=== PATIENT | female | born 1995 | race Two or more races ===

== ENCOUNTER 2023-12-10 14:27 | Outpatient (AMB) | payer OTHER, SELFPAY ==
--- NOTE | 2023-12-10 14:47 | MHC.PC.OV ---
Vital Signs 12/10/23 14:49 Height 5 ft 3 in Weight 332 lb 6 oz BMI 58.9 BP 118/70 Blood Pressure Location Lt brachial Position Sitting Pulse 98 Pulse Source Pulse Oximeter Pulse Oximetry (%) 96 Oxygen Delivery Method Room Air Intake Visit Reasons: Establish care Intake Note: Patient is a new patient here to establish care for PCOS. Transferring care from [facility]. Medical records have not been requested and have not received. 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: Not Required per policy Accompanied by: Self / Same As Patient Allergies metformin Allergy (Intermediate, Verified 12/11/23 06:27) Stomach Upset Medication List - Last Reconciled 12/11/23 by Avel Eisenberg MD No Known Home Meds Tobacco use date assessed: 12/10/23 Dental Screening Dental Screen Date: 12/10/23 Did you have a dental visit in the last 12 months?: Yes Did you have a dental problem in the last 6 months where you did not have access to dental care?: No Was dental information given to patient?: Patient has dentist HPI Establish care HPI Details 28-year-old female presents to the office requesting to establish her care here. Patient is a healthy female with PCOS. 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 At baseline state of health. REPLACED BY [facility] Surgical History No pertinent past surgical history Social History Housing: Apartment Alcohol intake: never Patient Tobacco Use Status: Never used Tobacco e-Cigarette/Vaping Use: Never Used Second Hand Smoke Exposure: No service: No Current occupational status: employed Current occupation: OA Cognitive needs: No Hearing needs: No Vision needs: No Questionnaire PHQ-9 Over the last 2 weeks, how often have you been bothered by any of the following problems? 1. Little interest or pleasure in doing things: not at all 2. Feeling down, depressed, or hopeless: not at all 3. Trouble falling or staying asleep, or sleeping too much: not at all 4. Feeling tired or having little energy: not at all 5. Poor appetite or overeating: not at all 6. Feeling bad about yourself - or that you are a failure or have let yourself or your family down: not at all 7. Trouble concentrating on things, such as reading the newspaper or watching television: not at all 8. Moving or speaking so slowly that other people could have noticed. Or the opposite - being so fidgety or restless that you have been moving around a lot more than usual: not at all 9. Thoughts that you would be better off or of hurting yourself in some way: not at all Total score: 0 Depression Screening Interpretation: Negative Depression Screening Done: Yes Source: Developed by Drs. Shankar Srinivasan, Celia Rodrigues, Zac Mata and colleagues, with an educational lurdes from [employer] Thrive Questionnaire Date Thrive assessed: 12/10/23 I am a: Patient What is your living situation today?: I have a steady place to live Within the past 12 months, did the food you bought not last and you didn't have the money to get more?: Never true Within the past 12 months, did you worry whether your food would run out before you got money to buy more?: Never true Do you have trouble paying for medicines?: No Do you have trouble getting transportation to medical appointments?: No Do you have trouble paying your heating and electricity bill?: No Do you have trouble taking care of your child, family member or friend?: No Do you have trouble with day-to-day activities such as bathing, preparing meals, shopping, managing finances, etc.?: No Are you currently unemployed and looking for a job?: No Are you interested in more education?: No Currently or been in a relationship where the following occur: no concerns reported AUDIT C Alcohol Use Questionnaire (AUDIT-C) 1. How often do you have a drink containing alcohol?: Never Total Score: 0 LANDON-7 AMB Questionnaire LANDON-7 Date LANDON - 7 assessed: 12/10/23 Feeling nervous, anxious, or on edge: 0 = Not at all Not being able to stop or control worryin = Not at all Worrying too much about different things: 0 = Not at all Trouble relaxin = Not at all Being so restless that it is hard to sit still: 0 = Not at all Becoming easily annoyed or irritable: 0 = Not at all Feeling afraid as if something awful might happen: 0 = Not at all Total LANDON-7 score (0-4 normal; 5-9 mild; 10-14 moderate; 15-21 severe): 0 Source: Developed by Drs. hSankar Srinivasan, Celia Rodrigues, Zac Mata and colleagues, with an educational lurdes from [employer] Physical exam (Primary Care) Vital Signs: Last Vital Signs Pulse 98 12/10/23 14:49 BP 118/70 12/10/23 14:49 Pulse Ox 96 12/10/23 14:49 Oxygen Delivery Method Room Air 12/10/23 14:49 BMI result Body Mass Index 58.9 Tobacco/Smoking Status: Tobacco use Status Tobacco use date assessed 12/10/23 12/10/23 14:58 Patient Tobacco Use Status Never used Tobacco 12/10/23 14:58 e-Cigarette/Vaping Use Never Used 12/10/23 14:58 PHQ-9: PHQ-9 Score PHQ-9: Total score 0 12/10/23 14:58 Depression Screening Interpretation: Negative Thrive Assessment: Date of Thrive Assessment Date Thrive assessed 12/10/23 12/10/23 14:58 Currently or been in a relationship where the following occur: no concerns reported Const General: cooperative and healthy appearing Nutritional Appearance: well nourished Orientation/consciousness: patient oriented x3 Limitations: no limitations HENMT Head: Yes normal to inspection Eyes General: appearance normal, both eyes and all related structures Neck Neck: Yes normal visual inspection Chest Chest palpation & inspection: normal palpation of entire chest wall Resp Effort & Inspection: normal respiratory effort Neuro General: patient oriented x3 Assessment and Plan Assessment & Plan (1) PCOS (polycystic ovarian syndrome): Code(s): E28.2 - Polycystic ovarian syndrome Plan: Blood work has been ordered. Will call patient with results. Coding Level of Care Code New Pt Level 3 (93030) Diagnoses PCOS (polycystic ovarian syndrome) E28.2
[2023-12-10 14:49] VITALS: BP 118/70; PULSE 98; O2SAT 96; BMI 58.9
== END 2023-12-10 16:08 | disposition home or self-care (01) ==
PROVIDERS: PCP Internal Medicine; Visit Provider Internal Medicine
DX: E28.2 Polycystic ovarian syndrome (principal)
CPT/HCPCS: 99203

== ENCOUNTER 2023-12-12 08:14 | Outpatient (REF) | payer OTHER, SELFPAY ==
[2023-12-12 10:47] LABS: Hematocrit 44.6 % (37.0-47.0); Mean Corpuscular HGB Conc 33.6 g/dl (31.0-35.0); Mean Corpuscular Hemoglobin 29.6 pg (27.0-33.0); Mean Corpuscular Volume 88.1 fL (80.0-98.0); Platelet Count 348 X10*3/uL (160-400); Red Blood Count 5.06 X10*6/uL (4.20-5.50); Red Cell Distribution Width 13.9 % (11.0-16.0); White Blood Count 9.5 X10*3/uL (4.8-10.8)
[2023-12-12 11:12] LABS: Alanine Aminotransferase 64 U/L (0-31); Albumin Level 4.1 g/dL (3.5-5.0); Alkaline Phosphatase 63 U/L (39-117); Anion Gap 9 (12-20); Appearance Urine Clear; Aspartate Amino Transferase 29 U/L (5-31); Bilirubin Direct 0.2 mg/dL (0.0-0.5); Bilirubin Total 0.5 mg/dL (0.0-1.0); Blood Urea Nitrogen 14 mg/dL (9-16); Calcium 9.3 mg/dL (8.4-10.2); Carbon Dioxide 27 mmol/L (22-29); Chloride 105 mmol/L (96-108); Cholesterol 200 mg/dL (<200); Color Urine Yellow; Estimated Glomerular Filt Rate > 60; Glucose Random 93 mg/dL (60-115); Glucose Urine UA Negative (Negative); HDL Cholesterol 33 mg/dL (>40); LDL Cholesterol Calculated 140 mg/dL (<100); Leukocyte Esterase Urine Negative (Negative); Nitrite Urine Negative (Negative); PH 5.5 (5.0-9.0); Potassium 4.3 mmol/L (3.3-5.1); Sodium 137 mmol/L (135-145); Specific Gravity - Urine 1.025 (1.005-1.025); Total Protein 7.7 g/dL (6.5-8.0); Triglycerides 137 mg/dL (<150); Urine Blood Negative (Negative); Urine Ketones Negative (Negative); Urine Protein Negative (Neg-Trace)
[2023-12-12 11:36] LABS: Insulin 27 uU/mL (2-29); Thyroid Stimulating Hormone 1.29 uIU/mL (0.32-4.0)
== END 2023-12-12 08:15 | disposition home or self-care (01) ==
LOC: HO.10HDL 08:14
PROVIDERS: Visit Provider Internal Medicine
DX: E28.2 Polycystic ovarian syndrome (principal)
CPT/HCPCS: 36415; 80048; 80061; 80076; 81003; 83525; 84443; 85027

== ENCOUNTER 2024-01-16 10:34 | Outpatient (REF) | payer OTHER, SELFPAY ==
[2024-01-17 04:17] LABS: HBc Num1 0.08 S/CO (0.00-0.79); HBsAGNum1 0.32 S/CO (0.00-0.99); Hepatitis B Core Antibody Nonreactive (Nonreactive); Hepatitis B Surface Antigen Negative (Negative); ~HepC Num1 0.08 S/CO (0.00-0.79); ~Hepatitis B Surface Antibody NONREACTIVE (Nonreactive); ~Hepatitis C Antibody Nonreactive (Nonreactive)
[2024-01-18 20:48] LABS: TS Negative Control Passed; TS Panel A 0; TS Panel B 0; TS Positive Control Passed; TSpotTB Negative (Negative)
== END 2024-01-16 10:35 | disposition home or self-care (01) ==
LOC: HO.10HDL 10:34
PROVIDERS: Visit Provider Physician Assistant
DX: Z11.1 Encounter for screening for respiratory tuberculosis (principal); L73.2 Hidradenitis suppurativa
CPT/HCPCS: 36415; 86481; 86704; 86706; 86803; 87340

== ENCOUNTER 2025-01-07 13:12 | Outpatient (REF) | payer OTHER, SELFPAY ==
[2025-01-07 16:46] LABS: Influenza A PCR POSITIVE (Negative); Influenza B PCR NEGATIVE (Negative); Resp Syncy Virus RNA Qual PCR NEGATIVE (Negative); SARS COV2 PCR INHOUSE NEGATIVE (Negative)
== END 2025-01-07 13:13 | disposition home or self-care (01) ==
LOC: HO.LAB 13:12
PROVIDERS: PCP Internal Medicine; Visit Provider Physician Assistant
DX: R09.89 Other specified symptoms and signs involving the circulatory and respiratory systems (principal); B34.9 Viral infection, unspecified; R50.9 Fever, unspecified
CPT/HCPCS: 0241U; 87880

== ENCOUNTER 2025-02-25 15:51 | Outpatient (AMB) | payer OTHER, SELFPAY ==
--- NOTE | 2025-02-25 15:54 | A.OFFPC_ITS ---
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 Accompanied by: Self / Same As Patient Allergies metformin Allergy (Intermediate, Verified 02/25/25 16:05) Stomach Upset Medication List - Last Reconciled 02/25/25 by BHARTI Amaya No Known Home Meds Tobacco use date assessed: 02/25/25 Dental Screening Dental Screen Date: 02/25/25 Did you have a dental visit in the last 12 months?: Yes Did you have a dental problem in the last 6 months where you did not have access to dental care?: No Was dental information given to patient?: Patient has dentist HPI high blood pressure and heart rate HPI Details The patient is a 29 year old female with hx of pcos and goiter. Reports that she went on [facility] in [place] on Saturday and they noticed that her blood pressure was 140/90, HR 112-116. The patient reports that she never had ultrasound of her neck before and she would like to if this is the dr pendleton force for pressure. Patient reports that she never had high blood pressure before. Blood pressure is elevated at 152/100 with a heart rate of 102. Recheck blood pressure is 162/98 left forearm. On exam the patient is noted to have a goiter. Patient reports that she is having a hard time swallowing her foods. And sometimes she gets short of breath sitting. [facility] Medical History (Updated 02/25/25 @ 16:44 by BHARTI Amaya) PCOS (polycystic ovarian syndrome) Goiter Surgical History No pertinent past surgical history Social History Housing: Apartment Alcohol intake: never Patient Tobacco Use Status: Never used Tobacco e-Cigarette/Vaping Use: Never Used Second Hand Smoke Exposure: No service: No Current occupational status: employed Current occupation: OA Cognitive needs: No Hearing needs: No Vision needs: No Questionnaire PHQ-9 Over the last 2 weeks, how often have you been bothered by any of the following problems? 1. Little interest or pleasure in doing things: not at all 2. Feeling down, depressed, or hopeless: not at all 3. Trouble falling or staying asleep, or sleeping too much: not at all 4. Feeling tired or having little energy: not at all 5. Poor appetite or overeating: not at all 6. Feeling bad about yourself - or that you are a failure or have let yourself or your family down: not at all 7. Trouble concentrating on things, such as reading the newspaper or watching television: not at all 8. Moving or speaking so slowly that other people could have noticed. Or the opposite - being so fidgety or restless that you have been moving around a lot more than usual: not at all 9. Thoughts that you would be better off or of hurting yourself in some way: not at all Total score: 0 Depression Screening Interpretation: Negative Depression Screening Done: Yes 82424 - PHQ-9 Billing: Yes Source: Developed by Drs. Shankar Srinivasan, Celia Rodrigues, Zac Mata and colleagues, with an educational lurdes from [employer] Thrive Questionnaire Date Thrive assessed: 12/10/23 I am a: Patient What is your living situation today?: I have a steady place to live Within the past 12 months, did the food you bought not last and you didn't have the money to get more?: Never true Within the past 12 months, did you worry whether your food would run out before you got money to buy more?: Never true Do you have trouble paying for medicines?: No Do you have trouble getting transportation to medical appointments?: No Do you have trouble paying your heating and electricity bill?: No Do you have trouble taking care of your child, family member or friend?: No Do you have trouble with day-to-day activities such as bathing, preparing meals, shopping, managing finances, etc.?: No Are you currently unemployed and looking for a job?: No Are you interested in more education?: No Please select the resources that you would like help with: None Currently or been in a relationship where the following occur: No concerns rep orted THRIVE Score: 0 AUDIT C Alcohol Use Questionnaire (AUDIT-C) 1. How often do you have a drink containing alcohol?: Monthly or less 2. How many drinks containing alcohol do you have on a typical day when you are drinking?: 1 or 2 3. How often do you have six or more drinks on one occasion?: Never Total Score: 1 LANDON-7 AMB Questionnaire LANDON-7 Date LANDON - 7 assessed: 02/25/25 Feeling nervous, anxious, or on edge: 0 = Not at all Not being able to stop or control worryin = Not at all Worrying too much about different things: 0 = Not at all Trouble relaxin = Not at all Being so restless that it is hard to sit still: 0 = Not at all Becoming easily annoyed or irritable: 0 = Not at all Feeling afraid as if something awful might happen: 0 = Not at all Total LANDON-7 score (0-4 normal; 5-9 mild; 10-14 moderate; 15-21 severe): 0 Source: Developed by Drs. Shankar Srinivasan, Celia Rodrigues, Zac Maat and colleagues, with an educational lurdes from [employer] LANDON-7 Assessment Billing LANDON-7 Assessment Tool: LANDON-7 Assessment 92727 Review of Systems Const Denies headache(s) and Reports snoring (was dx with JACI) Eyes Denies loss of vision ENT Reports dysphagia (has to chew food extensively before swallowing), Denies vertigo, Denies dizziness, Denies headache(s) and Denies sore throat Card Denies chest pain, Denies leg edema, Denies lightheadedness and Reports dyspnea (intermittent evening while sitting down) Resp Denies cough, Denies hemoptysis, Reports dyspnea (intermittent evening while sitting down), Reports snoring (was dx with JACI) and Denies wheezing GI Denies abdominal pain, Denies melena, Denies constipation, Reports dysphagia (has to chew food extensively before swallowing), Denies diarrhea and Denies vomiting Denies urinary frequency, Denies dysuria and Denies urinary urgency Musc Denies arthralgias, Denies joint swelling, Denies numbness and Denies tingling Neuro Denies Abnormal speech present, Denies behavioral changes, Denies vertigo, Denies dizziness, Denies headache(s), Denies loss of vision, Denies memory loss, Denies numbness and Denies tingling Psych Denies anxiety, Denies behavioral changes, Denies depression, Denies memory loss and Denies panic attacks Endo Denies cold intolerance, Denies heat intolerance and Denies polyuria Darrel/Lymph Denies easy bleeding and Denies easy bruising Aller/Immun Denies wheezing Physical exam (Primary Care) Vital Signs: Last Vital Signs Temp 98.7 F 02/25/25 15:55 Pulse 106 H 02/25/25 15:55 Resp 22 H 02/25/25 15:55 BP 152/100 H 02/25/25 15:55 Pulse Ox 96 02/25/25 15:55 Oxygen Delivery Method Room Air 02/25/25 15:55 BMI result Body Mass Index 60.8 Tobacco/Smoking Status: Tobacco use Status Tobacco use date assessed 02/25/25 02/25/25 16:03 Patient Tobacco Use Status Never used Tobacco 02/25/25 16:03 e-Cigarette/Vaping Use Never Used 02/25/25 16:03 PHQ-9: PHQ-9 Score PHQ-9: Total score 0 02/25/25 16:20 Depression Screening Interpretation: Negative Thrive Assessment: Date of Thrive Assessment Date Thrive assessed 12/10/23 02/25/25 16:03 Currently or been in a relationship where the following occur: No concerns reported Const General: healthy appearing, no acute distress, alert and awake Nutritional Appearance: well nourished Orientation/consciousness: oriented to person, oriented to place and oriented to time HENMT Ears: TM's normal bilaterally General nose exam: Normal nasal mucous membranes and turbinates present Eyes Conjunctivae: conjunctivae normal Sclerae: sclerae normal Pupils: Equal, round and reactive pupils present Neck Neck: Yes no lymphadenopathy and Yes no JVD Thyroid: lateral enlargement Carotids: no bruits Resp Effort & Inspection: normal respiratory effort and tachypneic (slightly-R 22) Auscultation: no crackles, no rales, no rhonchi and no wheezes Cardio Rate: tachycardic Rhythm: regular rhythm Heart sounds: no murmurs and normal S1 and S2 GI Palpation (GI): Soft to palpation, nontender, no hepatomegaly and no splenomegaly Auscultation: normal bowel sounds Skin General skin exam: no rashes or lesions noted and dry skin Neuro General: oriented to person, oriented to place and oriented to time Cranial nerves: Yes Equal, round and reactive pupils present Speech: No Abnormal speech present Gait exam (Neuro): Normal gait present Motor exam (neuro): no tremor noted Extrem Right upper extremity: full ROM Left upper extremity: full ROM Right lower extremity: full ROM; no edema Left lower extremity: full ROM; no edema Psych Mental Status: mental status grossly normal Speech and movement: Normal speech and movement present Affect: normal affect Attitude: cooperative Thought process: Normal thought process present Office Procedures EKG 36980-[id number], Complete Coding Level of Care Code Est Pt Level 4 (53969) Diagnoses Goiter E04.9 PCOS (polycystic ovarian syndrome) E28.2 SOB (shortness of breath) R06.02 JACI (obstructive sleep apnea) G47.33 Prediabetes R73.03 Elevated blood pressure reading without diagnosis of hypertension R03.0 CPT Codes EKG - CPT: 13648-[id number], Complete ([id number]) Additional Codes LANDON-7 Assessment Billing - LANDON-7 Assessment Tool: LANDON-7 Assessment 36604 ([id number]) PHQ-9 - 48939 - PHQ-9 Billing: Yes ([id number]) Time Spent (min) 43 Assessment & Plan Assessment & Plan (1) Goiter: Code(s): E04.9 - Nontoxic goiter, unspecified Category: Medical Plan: We will order an urgent ultrasound and thyroid function tests (2) PCOS (polycystic ovarian syndrome): Code(s): E28.2 - Polycystic ovarian syndrome Category: Medical Plan: History of PCOS and has been seen Endocrine. (3) SOB (shortness of breath): Code(s): R06.02 - Shortness of breath Category: Medical Plan: Shortness of breath intermittent while sitting. Lungs clear, EKG done in office shows sinus tachycardia and no acute findings The patient also reports that she has sleep apnea that was diagnosed in 2022 (4) JACI (obstructive sleep apnea): Code(s): G47.33 - Obstructive sleep apnea (adult) (pediatric) Category: Medical Plan: Reports she has been using a sleep cpap at the [facility] of last year. Sleep study 2022 The patient reports that she has not used her CPAP in a while; it is very uncomfortable for her. Reports that she use to be seen at [facility] but would like to go somewhere else instead-will refer her. 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 She has not have high blood pressure in the past and was concerns if this was being cause by her thyroid. BP elevated in office, denies chest pain. EKG done showed sinus tach without any acute findings. Hydrochlorothiazide 12.5 mg daily, return in 3 weeks to get blood pressure checked by nurse. Monitor bp at home. Maintain a low salt diet Orders: Orders AMB EKG-In Office Today Z13.6 - Encounter for screening for cardiovascular disorders US thyroid Today E04.9 - Nontoxic goiter, unspecified TSH reflex Free T4 Today B34.9 - Viral infection, unspecified, E04.9 - Nontoxic goiter, unspecified, E28.2 - Polycystic ovarian syndrome, G47.33 - Obstructive sleep apnea (adult) (pediatric), R03.0 - Elevated blood-pressure reading, without diagnosis of hypertension, R06.02 - Shortness of breath, R73.03 - Prediabetes Lipid Panel Today B34.9 - Viral infection, unspecified, E04.9 - Nontoxic goiter, unspecified, E28.2 - Polycystic ovarian syndrome, G47.33 - Obstructive sleep apnea (adult) (pediatric), R03.0 - Elevated blood-pressure reading, without diagnosis of hypertension, R06.02 - Shortness of breath, R73.03 - Prediabetes Glucose Fasting Today B34.9 - Viral infection, unspecified, E04.9 - Nontoxic goiter, unspecified, E28.2 - Polycystic ovarian syndrome, G47.33 - Obstructive sleep apnea (adult) (pediatric), R03.0 - Elevated blood-pressure reading, without diagnosis of hypertension, R06.02 - Shortness of breath, R73.03 - Prediabetes Hemoglobin A1c Today B34.9 - Viral infection, unspecified, E04.9 - Nontoxic goiter, unspecified, E28.2 - Polycystic ovarian syndrome, G47.33 - Obstructive sleep apnea (adult) (pediatric), R03.0 - Elevated blood-pressure reading, without diagnosis of hypertension, R06.02 - Shortness of breath, R73.03 - Prediabetes Free T4 (Free Thyroxine) Today B34.9 - Viral infection, unspecified, E04.9 - Nontoxic goiter, unspecified, E28.2 - Polycystic ovarian syndrome, G47.33 - Obstructive sleep apnea (adult) (pediatric), R03.0 - Elevated blood-pressure reading, without diagnosis of hypertension, R06.02 - Shortness of breath, R73.03 - Prediabetes Triiodothyronine T3 Free Today B34.9 - Viral infection, unspecified, E04.9 - Nontoxic goiter, unspecified, E28.2 - Polycystic ovarian syndrome, G47.33 - Obstructive sleep apnea (adult) (pediatric), R03.0 - Elevated blood-pressure reading, without diagnosis of hypertension, R06.02 - Shortness of breath, R73.03 - Prediabetes Iodine, Serum/Plasma Today B34.9 - Viral infection, unspecified, E04.9 - Nontoxic goiter, unspecified, E28.2 - Polycystic ovarian syndrome, G47.33 - Obstructive sleep apnea (adult) (pediatric), R03.0 - Elevated blood-pressure reading, without diagnosis of hypertension, R06.02 - Shortness of breath, R73.03 - Prediabetes Complete Blood Count Auto Diff Today B34.9 - Viral infection, unspecified, E04.9 - Nontoxic goiter, unspecified, E28.2 - Polycystic ovarian syndrome, G47.33 - Obstructive sleep apnea (adult) (pediatric), R03.0 - Elevated blood- pressure reading, without diagnosis of hypertension, R06.02 - Shortness of breath, R73.03 - Prediabetes Comprehensive [place]. Panel Fast Today B34.9 - Viral infection, unspecified, E04.9 - Nontoxic goiter, unspecified, E28.2 - Polycystic ovarian syndrome, G47.33 - Obstructive sleep apnea (adult) (pediatric), R03.0 - Elevated blood-pressure reading, without diagnosis of hypertension, R06.02 - Shortness of breath, R73.03 - Prediabetes Vitamin D 25-OH Total Today B34.9 - Viral infection, unspecified, E04.9 - Nontoxic goiter, unspecified, E28.2 - Polycystic ovarian syndrome, G47.33 - Obstructive sleep apnea (adult) (pediatric), R03.0 - Elevated blood-pressure reading, without diagnosis of hypertension, R06.02 - Shortness of breath, R73.03 - Prediabetes UA CC w/rflx Micro + Cult Today B34.9 - Viral infection, unspecified, E04.9 - Nontoxic goiter, unspecified, E28.2 - Polycystic ovarian syndrome, G47.33 - Obstructive sleep apnea (adult) (pediatric), R03.0 - Elevated blood-pressure reading, without diagnosis of hypertension, R06.02 - Shortness of breath, R73.03 - Prediabetes Triiodothyronine T3 Total Today B34.9 - Viral infection, unspecified, E04.9 - Nontoxic goiter, unspecified, E28.2 - Polycystic ovarian syndrome, G47.33 - Obstructive sleep apnea (adult) (pediatric), R03.0 - Elevated blood-pressure reading, without diagnosis of hypertension, R06.02 - Shortness of breath, R73.03 - Prediabetes Triiodothyronine T3 Reverse Today B34.9 - Viral infection, unspecified, E04.9 - Nontoxic goiter, unspecified, E28.2 - Polycystic ovarian syndrome, G47.33 - Obstructive sleep apnea (adult) (pediatric), R03.0 - Elevated blood-pressure reading, without diagnosis of hypertension, R06.02 - Shortness of breath, R73.03 - Prediabetes Referrals Neurology Referral G47.33 - Obstructive sleep apnea (adult) (pediatric) Medications: New hydrochlorothiazide 12.5 mg PO DAILY 30 days 30 caps 1RF R03.0 - Elevated blood-pressure reading, without diagnosis of hypertension
[2025-02-25 15:55] VITALS: BP 152/100; PULSE 106; RESP 22; TEMP 37.1; O2SAT 96; BMI 60.8
[2025-02-25 17:01] VITALS: BP 162/98
== END 2025-02-25 16:52 | disposition home or self-care (01) ==
LOC: HO.HMCH 15:52
PROVIDERS: PCP Internal Medicine; Visit Provider Internal Medicine
DX: E04.9 Nontoxic goiter, unspecified (principal); E28.2 Polycystic ovarian syndrome; R06.02 Shortness of breath; G47.33 Obstructive sleep apnea (adult) (pediatric); R73.03 Prediabetes; R03.0 Elevated blood-pressure reading, without diagnosis of hypertension

== ENCOUNTER → 2025-02-25 15:51 | Outpatient (BNVA) | payer OTHER, SELFPAY | PROVIDERS: PCP Internal Medicine; Visit Provider Internal Medicine | DX: E04.9 Nontoxic goiter, unspecified (principal); E28.2 Polycystic ovarian syndrome; R06.02 Shortness of breath; G47.33 Obstructive sleep apnea (adult) (pediatric); R73.03 Prediabetes; R03.0 Elevated blood-pressure reading, without diagnosis of hypertension; Z13.6 Encounter for screening for cardiovascular disorders | CPT/HCPCS: 93005; 96127 ==

== ENCOUNTER 2025-02-26 08:43 | Outpatient (REF) | payer OTHER, SELFPAY ==
[2025-02-26 09:21] LABS: MANUAL DIFF FLAG NO
[2025-02-26 09:58] LABS: Basophils Absolute Auto 0.1 X10*3/uL (0.0-0.2); Basophils Percent Auto 0.6 % (0-2); Eosinophils Absolute Auto 0.1 X10*3/uL (0.0-0.4); Eosinophils Percent Auto 1.5 % (0-4); Hematocrit 43.4 % (37.0-47.0); Hemoglobin 14.7 g/dl (12.0-16.0); Imm Gran Abs Auto 0.04 X10*3/uL (0.00-0.03); Imm Gran Pct Auto 0.5 % (0.0-0.4); Lymphocytes Absolute Auto 2.5 X10*3/uL (1.2-4.9); Lymphocytes Percent Auto 29.3 % (20-40); Mean Corpuscular HGB Conc 33.9 g/dl (31.0-35.0); Mean Corpuscular Hemoglobin 29.5 pg (27.0-33.0); Mean Platelet Volume 10.4 fL (9.4-12.3); Monocytes Absolute Auto 0.6 X10*3/uL (0.1-1.2); Monocytes Percent Auto 6.7 % (2-11); Neutrophils Absolute Auto 5.2 x10*3/uL (2.0-8.3); Neutrophils Percent Auto 61.4 % (45-73); Platelet Count 397 X10*3/uL (160-400); Red Blood Count 4.99 X10*6/uL (4.20-5.50); Red Cell Distribution Width 13.9 % (11.0-16.0); White Blood Count 8.5 X10*3/uL (4.8-10.8)
[2025-02-26 10:04] LABS: Estimated Average Glucose 114 mg/dL; Hemoglobin A1c % 5.6 % (<6.0)
[2025-02-26 11:25] LABS: Alanine Aminotransferase 63 U/L (0-31); Alkaline Phosphatase 72 U/L (39-117); Anion Gap 10 (12-20); Aspartate Amino Transferase 33 U/L (5-31); Bilirubin Total 0.5 mg/dL (0.0-1.0); Blood Urea Nitrogen 12 mg/dL (9-16); Calcium 9.2 mg/dL (8.4-10.2); Carbon Dioxide 26 mmol/L (22-29); Chloride 106 mmol/L (96-108); Cholesterol 176 mg/dL (<200); Estimated Glomerular Filt Rate > 60; Glucose Fasting 92 mg/dL (60-99); HDL Cholesterol 33 mg/dL (>40); LDL Cholesterol Calculated 127 mg/dL (<100); Potassium 4.5 mmol/L (3.3-5.1); Sodium 137 mmol/L (135-145); TSH reflex Free T4 0.81 uIU/mL (0.32-4.0); Total Protein 7.8 g/dL (6.5-8.0); Triglycerides 84 mg/dL (<150); Vitamin D 25-OH Total 17.5 ng/mL (>30)
[2025-02-26 11:39] LABS: Appearance Urine Clear; Color Urine Yellow; Glucose Urine UA Negative (Negative); Leukocyte Esterase Urine Negative (Negative); Nitrite Urine Negative (Negative); PH 5.5 (5.0-9.0); Specific Gravity - Urine 1.015 (1.005-1.025); UMIC TRIGGER UACC YES; Urine Blood Trace (Negative); Urine Ketones Negative (Negative); Urine Protein Negative (Neg-Trace)
[2025-02-26 11:46] LABS: Bacteria Urine 2+ (None Seen); Hyaline Casts Urine 0-2 /LPF (0-2); WBC Urine 0-5 /HPF (0-5)
[2025-02-27 08:23] LABS: Triiodothyronine T3 Free 3.7 pg/mL (2.3-4.2); Triiodothyronine T3 Total 114 ng/dL (76-181)
[2025-03-04 01:23] LABS: Triiodothyronine T3 Reverse 17 ng/dL (8-25)
== END 2025-02-26 08:44 | disposition home or self-care (01) ==
LOC: HO.LAB 08:43
DX: R03.0 Elevated blood-pressure reading, without diagnosis of hypertension (principal); R73.03 Prediabetes; G47.33 Obstructive sleep apnea (adult) (pediatric); R06.02 Shortness of breath; E28.2 Polycystic ovarian syndrome; E04.9 Nontoxic goiter, unspecified; B34.9 Viral infection, unspecified; Z13.6 Encounter for screening for cardiovascular disorders
CPT/HCPCS: 36415; 80053; 80061; 81001; 82306; 83036; 83789; 84439; 84443; 84480; 84481; 84482; 85025

== ENCOUNTER 2025-03-10 07:23 | Outpatient (REF) | payer OTHER, SELFPAY ==
--- NOTE | ~2025-03-10 | US_ITS ---
EXAMINATION: US THYROID CLINICAL INFORMATION: Nontoxic goiter, unspecified. COMPARISON: None available. TECHNIQUE: Linear transducer grayscale and color Doppler examination with attention to the region of the thyroid. FINDINGS: SIZE: Measurements of the thyroid lobes and nodules are given in sagittal, anteroposterior and transverse dimensions respectively. Right Thyroid Lobe: 4.8 x 1.7 x 1.9 cm, volume 8.1 mL. Parenchyma: The gland echotexture is heterogeneous. Thyroid vascularity is normal. Left Thyroid Lobe: 4.9 x 2.3 x 2.1 cm, volume 12.3 mL. Parenchyma: The gland echotexture is heterogeneous. Thyroid vascularity is normal. Isthmus: 0.39 cm in maximum AP dimension. Estimated total number of nodules greater than or equal to 1 cm: 2. Manager Ui nodules are described as follows: 1. Location: Upper, right thyroid lobe.. Size: 2.2 x 1.2 x 1.4 cm, volume 1.8 mL. Nodule characteristics: Composition: Solid/almost completely solid (2). Echogenicity: Isoechoic (1). Shape: Not taller than wide (0). Margins: Smooth (0). Echogenic Foci: None (0). ACR TI-RADS total points: 3 ACR TI-RADS category: 3 2. Location: Upper, right thyroid lobe.. Size: 0.6 x 0.4 x 0.5 cm, volume 0.06 mL. Nodule characteristics: Composition: Spongiform (0). Echogenicity: Shape: Not taller than wide (0). Margins: Smooth (0). Echogenic Foci: None 0 ACR TI-RADS total points: 0 ACR TI-RADS category: 1 3. Location: Upper, left thyroid lobe.. Size: 2.6 x 1.7 x 1.9 cm, volume 4.4 mL. Nodule characteristics: Composition: Solid/almost completely solid (2). Echogenicity: Hypoechoic (2). Shape: Not taller than wide (0). Margins: Smooth (0). Echogenic Foci: None 0 ACR TI-RADS total points: 4 ACR TI-RADS category: 4 NODES: No lymphadenopathy is seen in the tissue surrounding the thyroid gland. US/US thyroid IMPRESSION: ACR TI RADS 4, upper left thyroid lobe. ACR TI RADS 3, upper right thyroid lobe. ACR TI-RADS RECOMMENDATION REFERENCE: Ultrasound-guided fine-needle aspiration, followup ultrasound, no further follow up. * TR1 (0 point) and TR2 (2 points): No FNA or follow up. * TR3 (3 points): FNA if more than or equal to 2.5 cm in maximum dimension, followup ultrasound in 1, 3 and 5 years if 1.5 to 2.4 cm in maximum dimension. * TR4 (4-6 points): FNA if more than or equal to 1.5 cm in maximum dimension, followup ultrasound in 1, 2, 3 and 5 years if 1 to 1.4 cm in maximum dimension. * TR5 (more than or equal to 7 points): FNA if more than or equal to 1 cm in maximum dimension, followup ultrasound every year for 5 years if 0.5 to 0.9 cm in maximum dimension. * TR3, TR4 or TR5 nodules that are below the size threshold for followup receive no follow up. Electronically signed by: Yossi Jimenez MD 03/10/2025 07:57 AM EDT
--- OUTSIDE RECORDS SUMMARY | 2025-03-10 07:26 | XMS_ITS | Clinical Summary ---
Author Organization [facility] ity Address [address] [place] [address] Care Team Providers Care Processing Spec Name Role Phone Unavailable Primary Care Provider Unavailabl e Social History Tobacco Use Types Packs/Day Years Used Date Smoking Tobacco: Never Assessed Comments Unknown Sex and Gender Information Value Date Recorded Sex Assigned at Not on file Legal Sex Female 3:01 AM EST Gender Identity Not on file Sexual Orientation Not on file Plan of Treatment Health Maintenance Due Date Last Done Comments DTaP,Tdap,and Td Vaccines (1 - Tdap) 2013 Hepatitis B Vaccines (1 of 3 - 19+ 3-dose series) 2013 Cervical Cancer Screening: P ap Smear 2015 HIV Screening 11/04/2022 COVID-19 Vaccine ( - 2023-2 5 season) 2024 Influenza Vaccine (#1) 2024 HIB Vaccines Aged Out No longer eligi ble based on patient's age to complete this topic HPV Vaccines Aged Out No longer eligi ble based on patient's age to complete this topic Hepatitis A Vaccines Aged Out No long er eligible based on patient's age to complete this topic IPV Vaccines Aged Out No longer eligi ble based on patient's age to complete this topic MMR Vaccines Aged Out No longer eligi ble based on patient's age to complete this topic Meningococcal ACWY Vaccine Aged Out N o longer eligible based on patient's age to complete this topic Meningococcal B Vaccine Aged Out No l onger eligible based on patient's age to complete this topic Pneumococcal Vaccine: Pediat rics (0 to 5 Years) and At-Risk Patients (6 to 64 Years) Aged Out No longer eligible b ased on patient's age to complete this topic RSV Immunization Patients Un curt 20 months Aged Out No longer eligible b ased on patient's age to complete this topic Varicella Vaccines Aged Out No longer eligible based on patient's age to complete this topic
--- OUTSIDE RECORDS SUMMARY | 2025-03-10 07:26 | XMS_ITS | Continuity of Care Document ---
Author Organization [facility] [address] [facility] [address] [place] [address] Phone [phone] Care Team Providers Care Director Speech Language Name Role Phone Avel Eisenberg MD Care Team Information R eiver [phone] Problems Active Problems Provider Date Polycystic ovary syndrome RUSS Novak Ons et: 01/23/2024 Attention deficit hyperactivity disorder RUSS Novak Onset: 01/23/2024 Obstructive sleep apnea syndrome RUSS Novak Onset: 01/23/2024 Goiter RUSS Novak Onset: 2023 Social History Type Date Description Comments Sex Unknown Tobacco Use Start: Unknown Never Smoked Cigarettes ETOH Use Occasionally consumes alcoho l Allergies and adverse reactions Active Allergies Criticality Reaction Severity Comments Date NKDA Unable to assess criticality 01/23/2024 Shrimp Unable to assess criticality 01/23/2024 Medications Active Medications SIG Qnty Indications Ordering Provider Date [id number] Tablets 1 tablet by mouth at 11 pm 1tabs Mary Martinez M.D. 02/23/2025 Zepbound2.5mg/0.5ML Solution Auto-Inject inject 0.5 ml weekly 2ml Mary Martinez M.D. 02/23/2025 Vital Signs Date Vital Result Comment 02/23/2025 3:22pm BP Systolic 132 mmHg BP Diastolic 94 mmHg Heart Rate 96 /min Height 63 inches 5'3 Weight 342.00 lb BMI (Body Mass Index) 60.6 kg/m2 Results Test Acquired Date Facility Test Result H/L Range N ote FSH 02/14/2024 [facility] FSH 5.7 mIU/mL 1, 2 Luteinizing Hormone(LH) 02/14/2024 [facility] Luteinizing Hormone(LH) 7.7 mIU/mL 3 Dhea-Sulfate 02/14/2024 [facility] Dhea-Sulfate 295.0 g /dL 84.8-378. 0 Cortisol 02/14/2024 [facility] Cortisol 7.9 g /dL 6.2-19.4 4 Estradiol 02/14/2024 [facility] Estradiol 51.7 pg/mL 5 17-Oh Progesterone LCMS 02/14/2024 [facility] 17-Oh Progesterone LCMS 57 ng/dL 6 TestT+TestF+SHBG 02/14/2024 [facility] Testosterone 83 ng/dL High 13-71 Sex Horm Bindin g Glob, Serum 22.9 nmol/L Low 24.6-122. 0 Free Testosterone(Dire ct) 8.1 pg/mL High 0.0-4.2 1 Test(s) 428335-88-QF Progesterone LCMS was developed and its performance characteristics determined by [facility]. It has not been cleared or approved by the Food and Drug Administration. 2 Adult Female Range Follicular phase 3.5 - 12.5 Ovulation phase 4.7 - 21.5 Luteal phase 1.7 - 7.7 Postmenopausal 25.8 - 134.8 3 Adult Female Range Follicular phase 2.4 - 12.6 Ovulation phase 14.0 - 95.6 Luteal phase 1.0 - 11.4 Postmenopausal 7.7 - 58.5 4 Please Note: The ref erence interval and flagging for this test is for an AM collection. If this is a PM collection please use: Cortisol PM: 2.3-11.9 5 Adult Female Range Follicular phase 12.5 - 166.0 Ovulation phase 85.8 - 498.0 Luteal phase 43.8 - 211.0 Postmenopausal <6.0 - 54.7 1st trimester 215.0 - >4300.0 Keiko ECLIA methodology 6 Adult Female Follicular 15 - 70 Luteal 35 - 290 Medical Devices Description No Information Available Encounters Type Date Location Provider Dx Diagnosis Office Visit 02/23/2025 3:15p Main Office RUSS Novak E28.2 Polycystic ov sammie syndrome R53.83 Other fatigue E66.01 Morbid (severe) obes ity due to excess calories G47.30 Sleep apnea, unspeci fied Z68.44 Body mass index [BMI ] 60.0-69.9, adult Assessments Date Code Description Provider 02/23/2025 E28.2 Polycystic ovarian syndrome RUSS Novak 02/23/2025 R53.83 Other fatigue RUSS oNvak 02/23/2025 E66.01 Morbid (severe) obesity due to excess calories RUSS Novak 02/23/2025 G47.30 Sleep apnea, unspecified RUSS Kc 02/23/2025 Z68.44 Body mass index [BMI] 60.0-6 9.9, adult RUSS Novak Plan of Treatment Future Appointment(s):* 08/27/2025 8:00 am - RUSS Novak at Main Office 02/23/2025 - RUSS Novak* E28.2 Polycystic ovarian syndrome * R53.83 Other fatigue * E66.01 Morbid (severe) obesity due to excess calories * G47.30 Sleep apnea, unspecified * Z68.44 Body mass index [BMI] 60.0-69.9, adult * Functional Status Description No Information Available Mental Status Description No Information Available Referrals Description No Information Available
== END 2025-03-10 07:24 | disposition home or self-care (01) ==
LOC: HO.US 07:23
PROVIDERS: PCP Internal Medicine
DX: E04.9 Nontoxic goiter, unspecified (principal); R01.0 Benign and innocent cardiac murmurs
CPT/HCPCS: 76536

== ENCOUNTER → 2025-03-10 07:25 | Outpatient (BNV) | payer OTHER, SELFPAY | PROVIDERS: PCP Internal Medicine; Visit Provider Radiology Diagnostic Radiology | DX: E04.1 Nontoxic single thyroid nodule (principal) | CPT/HCPCS: 76536 ==

== ENCOUNTER → 2025-03-18 09:31 | Outpatient (BNVA) | payer OTHER, SELFPAY | PROVIDERS: PCP Internal Medicine ==

== ENCOUNTER → 2025-04-07 15:15 | Outpatient (AMB) | payer OTHER, SELFPAY ==
--- NOTE | 2025-04-07 12:47 | A.OFFVIS_ITS ---
Vital Signs 04/07/25 12:51 Height 5 ft 3 in BP 130/80 Blood Pressure Location Rt brachial Position Sitting Pulse 120 H Pulse Source Pulse Oximeter Intake Visit Reasons: Nontoxic single thyroid nodule Intake Note: Patient present today for Nontoxic single thyroid nodule. 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 Saw [facility], was following with them for PCOS , and expressed concerns about difficulty swallowing but no imaging was done. PCP ordered the US done in March 2025. Ultrasound of the thyroid done March 2025, I reviewed the images myself which showed a right superior 2.2 cm solid, isoechoic nodule, I am concerned about extrathyroidal extension on this nodule, would classify this is TR 5 instead of TR 3, another solid hypoechoic left superior 2.6 cm TR 4 category nodule, both of these meet criteria for FNA. The right lower pole subcentimeter nodule appears low risk. Patient currently denies heat or cold intolerance, diarrhea or constipation, , weight changes, mood changes, low energy, changes in appearance of eyes or vision changes, tremors, increased diaphoresis or dry skin. ? Reports intermittent palpitations, some anxiety. Patient describes difficulty swallowing since 6 months, stable, both with liquids and solids , mainly with dry bites. , Denies pain on swallowing or voice changes. Endorse difficulty breathing since the past 6 months . Endorses pressure sensation in neck when she lays down flat. Patient denies any history of childhood neck radiation. Denies having ever used lithium, amiodarone or biotin supplements. Patient denies any family history of thyroid cancer. Maternal grandmother had hypothyroidism. Physical exam General: sitting comfortably in no acute distress HEENT: normocephalic/atraumatic, EOM intact, moist oral mucosa Neck: supple,Palpable 2 cm right-sided nodule, palpable 2 cm left-sided nodule, Cardiac: normal heart sounds Pulm: normal breath sounds B/L, no added breath sounds Abd: not distended, no tenderness Extremities: no edema, no signs of myxedema Neuro: AAO x3, Speech: normal, no facial droop, moving all 4 extremities Laboratory Tests 02/26/25 09:20 TSH 0.81 Free T4 1.00 Free T3 3.7 Total T3 114 US THYROID March 2025 CLINICAL INFORMATION: Nontoxic goiter, unspecified. COMPARISON: None available. TECHNIQUE: Linear transducer grayscale and color Doppler examination with attention to the region of the thyroid. FINDINGS: SIZE: Measurements of the thyroid lobes and nodules are given in sagittal, anteroposterior and transverse dimensions respectively. Right Thyroid Lobe: 4.8 x 1.7 x 1.9 cm, volume 8.1 mL. Parenchyma: The gland echotexture is heterogeneous. Thyroid vascularity is normal. Left Thyroid Lobe: 4.9 x 2.3 x 2.1 cm, volume 12.3 mL. Parenchyma: The gland echotexture is heterogeneous. Thyroid vascularity is normal. Isthmus: 0.39 cm in maximum AP dimension. Estimated total number of nodules greater than or equal to 1 cm: 2. 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 Location: Upper, right thyroid lobe.. Size: 2.2 x 1.2 x 1.4 cm, volume 1.8 mL. Nodule characteristics: Composition: Solid/almost completely solid (2). Echogenicity: Isoechoic (1). Shape: Not taller than wide (0). Margins: Smooth (0). Echogenic Foci: None (0). ACR TI-RADS total points: 3 ACR TI-RADS category: 3 2. Location: Upper, right thyroid lobe.. Size: 0.6 x 0.4 x 0.5 cm, volume 0.06 mL. Nodule characteristics: Composition: Spongiform (0). Echogenicity: Shape: Not taller than wide (0). Margins: Smooth (0). Echogenic Foci: None 0 ACR TI-RADS total points: 0 ACR TI-RADS category: 1 3. Location: Upper, left thyroid lobe.. Size: 2.6 x 1.7 x 1.9 cm, volume 4.4 mL. Nodule characteristics: Composition: Solid/almost completely solid (2). Echogenicity: Hypoechoic (2). Shape: Not taller than wide (0). Margins: Smooth (0). Echogenic Foci: None 0 ACR TI-RADS total points: 4 ACR TI-RADS category: 4 NODES: No lymphadenopathy is seen in the tissue surrounding the thyroid gland. US/US thyroid IMPRESSION: ACR TI RADS 4, upper left thyroid lobe. ACR TI RADS 3, upper right thyroid lobe. 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 Ultrasound of the thyroid done March 2025, I reviewed the images myself which showed a right superior 2.2 cm solid, isoechoic nodule, I am concerned about extrathyroidal extension on this nodule, would classify this is TR 5 instead of TR 3, another solid hypoechoic left superior 2.6 cm TR 4 category nodule, both of these meet criteria for FNA. The right lower pole subcentimeter nodule appears low risk. I explained that it is common to have thyroid nodules. About 95% of the time these nodules are benign. However if the nodule is > 1 cm in size or suspicious on ultrasound then a fine need aspiration biopsy is recommended. We discussed that a FNAB involves 4-5 passes with a small gauge needle and material obtained is sent off for cytology.If the cytopathology is benign then the nodule will be followed annually with repeat ultrasounds. However if it is suspicious or malignant, we will need to discuss further management. Indeterminate cytology can be further investigated with repeat FNA, genetic testing or empiric lobectomy. Malignant cytology is managed with either lobectomy or total thyroidectomy. We discussed briefly that thyroid cancer is, in most patients, an indolent disease that does not affect mortality. We will arrange for FNAOf the right superior 2.2 cm and the left superior 2.6 cm at next available opening and patient will follow up with me in clinic thereafter for results and further decision making. patient does have significant compressive symptoms, we discussed that even if the biopsy results come back benign, we will consider sending her for surgical evaluation due to significant compressive symptoms. normal TFTs from January 2025. Plan: - scheduled for FNA of the right superior 2.2 cm in the left superior 2.6 cm thyroid nodule FNA biopsy and a follow up 2 weeks after to discuss results Orders: Orders US biopsy thyroid Today E04.2 - Nontoxic multinodular goiter Patient Instructions: I spent 45 minutes in reviewing the record, seeing the patient and documenting in the medical record. Coding Level of Care Code New Pt Level 4 (27721) Diagnoses Multinodular goiter E04.2 Time Spent (min) 45
[2025-04-07 12:51] VITALS: BP 130/80; PULSE 120
--- OUTSIDE RECORDS SUMMARY | 2025-04-07 16:16 | XMS_ITS | Clinical Summary ---
Author Organization [facility] ity Address [address] [place] [address] Care Team Providers Care Equity Trader Name Role Phone Unavailable Primary Care Provider [...] Cervical Cancer Screening: P ap Smear 2015 COVID-19 Vaccine ( - 2023-2 5 season) 2024 Influenza Vaccine (Season Ended) 2025 HIB Vaccines Aged Out No longer eligi [...]
--- OUTSIDE RECORDS SUMMARY | 2025-04-07 16:16 | XMS_ITS | Continuity of Care Document ---
Author Organization [facility] [address] [facility] [address] [place] [address] Phone [phone] Care Team Providers Care Crm Marketing Manager Name Role Phone Avel Eisenberg MD Care Team Information R eceiver [phone] Problems Active Problems Provider Date Polycystic ovary [...] Medications SIG Qnty Indications Ordering Provider Date Gwqbnemzsmfvi3rf Tablets 1 tablet by mouth at 11 [...] ct) 8.1 pg/mL High 0.0-4.2 1 Test(s) [id number] Progesterone LCMS was developed and its performance characteristics determined by [facility]. It has not been cleared or approved [...] RUSS Novak 02/23/2025 R53.83 Other fatigue RUSS Novak 02/23/2025 E66.01 Morbid (severe) obesity due to [...]
== END ==
LOC: HO.ENCR 15:15
PROVIDERS: PCP Internal Medicine; Visit Provider Student in an Organized Health Care Education/Training Program
DX: E04.2 Nontoxic multinodular goiter (principal)
CPT/HCPCS: 99204

== ENCOUNTER 2025-04-21 07:58 | Outpatient (REF) | payer OTHER, SELFPAY ==
--- NOTE | 2025-04-21 08:46 | PM.PROC ---
Brief Operative Note Date of procedure: 04/21/25 Pre-op diagnosis: right superior 2.2 cm and left superior 2.6 cm thyroid nodule FNA biopsy Post-op diagnosis: same Procedure: THYROID FINE NEEDLE ASPIRATION PROCEDURE NOTE ? PROCEDURE PERFORMED: Ultrasound-guided FNA of thyroid nodule ? OPERATORS: Dr. Pamela Prieto ? INDICATION: right superior 2.2 cm and left superior 2.6 cm thyroid nodules ; FNA performed to assess for malignancy ? DESCRIPTION OF PROCEDURE: The indications for FNA (to assess for malignancy) were reviewed with the patient in detail. Potential complications (e.g., bleeding, infection, damage to local structures, absence of clear diagnosis after FNA) were reviewed. Alternatives to FNA including conservative observation or surgery were described. The patient understood and agreed to proceed. This was documented by the signing of the written informed consent form. A time-out was performed to confirm the patient's identity and the site of planned FNA. The nodules of interest were identified using ultrasound (14 MHz linear array probe). The sites of FNA was then draped in the usual fashion and carefully cleaned and prepared using alcohol swabs. The skin at the previously-identified sites of needle insertion was iced and sprayed with numbing spray. First for the right superior 2.2 cm thyroid nodule, Under ultrasound guidance, _4_ passes were performed using a 1.5-inch, 25-gauge needle, and sample was obtained via capillary action. The needle tip was clearly visualized to be within the nodule at the time of sampling for 4__ of _4_ passes. Then for the left superior 2.6 cm thyroid nodule , Under ultrasound guidance, _4_ passes were performed using a 1.5-inch, 25-gauge needle, and sample was obtained via capillary action. The needle tip was clearly visualized to be within the nodule at the time of sampling for 4__ of _4_ passes. The patient tolerated the procedure well. There were no immediate complications. A small adhesive bandage was applied, and the patient was advised to take acetaminophen (rather than NSAIDs) for any discomfort and to report any signs of inflammation/infection or marked swelling. IMPRESSION: Technically successful ultrasound-guided fine needle aspiration of right superior 2.2 cm and left superior 2.6 cm thyroid nodules . PLAN: The patient was advised that I will provide follow-up regarding the cytology result and any subsequent plans. Pamela Prieto MD Endocrinology Attending Condition: stable Disposition: same day
--- OUTSIDE RECORDS SUMMARY | 2025-04-21 08:52 | XMS_ITS | Clinical Summary ---
Author Organization [facility] ity Address [address] [place] [address] Care Team Providers Care Signals Analyst Name Role Phone Unavailable Primary Care Provider [...]
== END 2025-04-21 07:59 | disposition home or self-care (01) ==
LOC: HO.US 07:58
PROVIDERS: PCP Internal Medicine; Visit Provider Student in an Organized Health Care Education/Training Program
DX: E04.2 Nontoxic multinodular goiter (principal)
CPT/HCPCS: 10005; 10006; 88173; 88305

== ENCOUNTER → 2025-04-21 07:58 | Outpatient (BNV) | payer OTHER, SELFPAY | PROVIDERS: PCP Internal Medicine; Visit Provider Student in an Organized Health Care Education/Training Program | DX: E04.2 Nontoxic multinodular goiter (principal) | CPT/HCPCS: 10005; 10006 ==

== ENCOUNTER 2025-04-23 08:03 | Outpatient (AMB) | payer OTHER, SELFPAY ==
--- OUTSIDE RECORDS SUMMARY | 2025-04-23 08:06 | XMS_ITS | Clinical Summary ---
Author Organization [facility] ity Address [address] [place] [address] Care Team Providers Care Rrts Name Role Phone Unavailable Primary Care Provider [...]
--- NOTE | 2025-04-23 08:08 | A.OFFVIS_ITS ---
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 She has been using a sleep CPAP at the [facility] last year. Sleep study 2022 The patient reports that she has not used her CPAP in a while; it is very uncomfortable for her and keep sleep with it and doesn't feel like its helpful. Reports that she use to be seen at [facility] neurology. Allergies metformin Allergy (Intermediate, Verified 04/28/25 12:42) Stomach Upset HPI Comments Details: 29 year old patient referred to us for sleep apnea referred to us by PCP. She was assessed for JACI by [facility], and has a cpap machine, however she was unable to tolerate the mask at night and would tear it off of her face. She usually goes to sleep at 9pm to 10pm on her couch. She snores all night long and her partner notices she gasps for air and will wake herself up. She has been taking a statin and Hctz for bp issues. Her pulse is high today, she has 2.0 cm nodules on both lobes of her thyroid. Her mood is stable, memory is poor and concerned about the thyroid goiters. Grandma passed at 65 due to stroke. Denies RLS and denies migraines now that her bp is controlled. Weight management for nutritional counseling. 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 Cognitive needs: No Hearing needs: No Vision needs: No Physical Exam Vital Signs: Last Vital Signs Pulse 106 H 04/23/25 08:09 BP 130/88 04/23/25 08:09 Pulse Ox 97 04/23/25 08:09 Oxygen Delivery Method Room Air 04/23/25 08:09 BMI result Body Mass Index 59.9 Const Other: BMI is 59.9 Weight is 338lb General: cooperative, comfortable and no acute distress Nutritional Appearance: obese Orientation/consciousness: patient oriented x3 Eyes Pupils: Equal, round and reactive pupils present Neck Neck: Yes full ROM Neuro General: patient oriented x3 and moves all extremities Cranial nerves: Yes Facial sensation intact/muscles of mastication intact, Yes Equal, round and reactive pupils present, Yes Normal accommodation reflex present, Yes Midline tongue present, Yes Ability to bilaterally rotate head present and Yes Ability to bilaterally elevate shoulders present Gait exam (Neuro): Normal gait present Motor exam (neuro): 5/5 motor strength present throughout and Normal motor muscle tone present throughout Deep tendon reflexes (DTR's): Right triceps reflex intensity grade: 2+, Left triceps reflex intensity grade: 2+, Rt Biceps (C5, C6): 2+, Left biceps reflex intensity grade: 2+, Right brachioradialis reflex intensity grade: 2+, Left brachioradialis reflex intensity grade: 2+, Right patellar reflex intensity grade: 2+, Left patellar reflex intensity grade: 2+, Right ankle reflex intensity grade: 2+ and Left ankle reflex intensity grade: 2+ Psych Appearance: grossly normal Affect: normal affect Attitude: cooperative Results Reviewed Results Reviewed: TSH Goiters R/L solid component 2cm. Assessment & Plan Assessment & Plan (1) JACI (obstructive sleep apnea): Code(s): G47.33 - Obstructive sleep apnea (adult) (pediatric) Category: Medical (2) Loud snoring: Code(s): R06.83 - Snoring Category: Medical (3) Excessive daytime sleepiness: Code(s): G47.19 - Other hypersomnia Category: Medical Plan JACI will evaluate with HST Snoring try a mouth gaurd or nose strips to lessen snoring. Excessive daytime sleepiness with fatigue, TSH nodules being biopsied April 2025 pending results, pulse is tachy. BMI is elevated 59.9 referral for weight management. Orders: Orders RT home sleep study 04/23/25 G47.19 - Other hypersomnia, G47.33 - Obstructive sleep apnea (adult) (pediatric) Patient Instructions: Sleep Hygiene provided: set a scheduled bedtime and wake time to help regulate the circadian rhythm and balance the release of pituitary hormones. Sleep in a dark room, temperatures below 68 degrees, and no devices n bed. Limit caffeinated products 6 hours prior to bed, and limit fluids 2-4 hours prior to bed. Gentle night yoga, diffusing essential oils, and playing soft music can be relaxing. Changing lifestyle and diet management will reset your gut microbiome, walking daily for 30 min or swimming laps for 30 min can produce great outcomes. Despite the s/e of metformin, it is the oldest and most reputable medication for diabetes and PCOS, in many studies it has been shown to reset the gut microbiome . Review this article for evidence based data changing the gut - microbiome with probiotics. dated January 2024. [email or web address]-insights# Dysbiosis, and gut permeability changes may be improved with lactobacillus and probiotics which heal the mucosal lining. Coding Level of Care Code New Pt Level 4 (42664) Diagnoses JACI (obstructive sleep apnea) G47.33 Loud snoring R06.83 Excessive daytime sleepiness G47.19 Time Spent (min) 35 Comment evaluation Sleep Questionnaire Difficulty falling asleep: No Difficulty staying asleep?: No Number of arousals: 1 Snoring: Yes Witnessed apneas: Yes Gasping arousals: Yes Nocturia: No GERD: No Vivid dreams: No Acting out dreams: No Abnormal behavior in sleep: No Abnormal movements in sleep: No Morning headaches: No Excessive daytime sleepiness: No Daytime naps: Yes Restless legs: No Hallucinations: No Drop attacks: No Sleep Study: Yes CPAP: Yes
[2025-04-23 08:09] VITALS: BP 130/88; PULSE 106; O2SAT 97; BMI 59.9
== END 2025-04-23 09:10 | disposition home or self-care (01) ==
LOC: HO.HSMS 08:04
PROVIDERS: PCP Internal Medicine; Visit Provider Physician Assistant Medical
DX: G47.33 Obstructive sleep apnea (adult) (pediatric) (principal); R06.83 Snoring; G47.19 Other hypersomnia
CPT/HCPCS: 99204

== ENCOUNTER 2025-04-28 12:36 | Outpatient (AMB) | payer OTHER, SELFPAY ==
[2025-04-28 12:39] VITALS: BP 120/72; PULSE 89; O2SAT 95
--- NOTE | 2025-04-28 12:39 | A.OFFVIS_ITS ---
Vital Signs 3 04/28/25 12:39 Height 5 ft 3 in BP 120/72 Blood Pressure Location Lt brachial Position Sitting Pulse 89 Pulse Source Pulse Oximeter Pulse Oximetry (%) 95 Oxygen Delivery Method Room Air Intake Visit Reasons: Biopsy f/u. Intake Note: Patient present today for biopsy results. Joint Setter Required: No Accompanied by: Self / Same As Patient Allergies metformin Allergy (Intermediate, Verified 04/28/25 12:42) Stomach Upset Medication List - Last Reconciled 04/28/25 by Pamela Prieto MD atorvastatin 10 mg PO BEDTIME cholecalciferol (vitamin D3) 50 mcg PO DAILY hydrochlorothiazide 12.5 mg PO DAILY 30 days HPI Comments Details: 29-year-old female here today for follow up of nontoxic multinodular goiter. HPI Saw [facility], was following with them for PCOS , and expressed concerns about difficulty swallowing but no imaging was done. PCP ordered the US done in March 2025. Ultrasound of the thyroid done March 2025, I reviewed the images myself which showed a right superior 2.2 cm solid, isoechoic nodule, I am concerned about extrathyroidal extension on this nodule, would classify this is TR 5 instead of TR 3, another solid hypoechoic left superior 2.6 cm TR 4 category nodule, both of these meet criteria for FNA. The right lower pole subcentimeter nodule appears low risk. Patient currently denies heat or cold intolerance, diarrhea or constipation, , weight changes, mood changes, low energy, changes in appearance of eyes or vision changes, tremors, increased diaphoresis or dry skin. ? Reports intermittent palpitations, some anxiety. Patient describes difficulty swallowing since 6 months, stable, both with liquids and solids , mainly with dry bites. , Denies pain on swallowing or voice changes. Endorse difficulty breathing since the past 6 months . Endorses pressure sensation in neck when she lays down flat. Patient denies any history of childhood neck radiation. Denies having ever used lithium, amiodarone or biotin supplements. Patient denies any family history of thyroid cancer. Maternal grandmother had hypothyroidism. Interval history 04/21/2025: Status post FNA of the right superior 2.2 cm nodule which came back as nondiagnostic, [place] category 1 and FNA of the left superior 2.6 cm nodule came back as malignant PTC ([place] category 6). Physical exam General: sitting comfortably in no acute distress HEENT: normocephalic/atraumatic, EOM intact, moist oral mucosa Neck: supple,Palpable 2 cm right-sided nodule, palpable 2 cm left-sided nodule, Cardiac: normal heart sounds Pulm: normal breath sounds B/L, no added breath sounds Abd: not distended, no tenderness Extremities: no edema, no signs of myxedema Neuro: AAO x3, Speech: normal, no facial droop, moving all 4 extremities Laboratory Tests 02/26/25 09:20 TSH 0.81 Free T4 1.00 Free T3 3.7 Total T3 114 US THYROID March 2025 CLINICAL INFORMATION: Nontoxic goiter, unspecified. COMPARISON: None available. TECHNIQUE: Linear transducer grayscale and color Doppler examination with attention to the region of the thyroid. FINDINGS: SIZE: Measurements of the thyroid lobes and nodules are given in sagittal, anteroposterior and transverse dimensions respectively. Right Thyroid Lobe: 4.8 x 1.7 x 1.9 cm, volume 8.1 mL. Parenchyma: The gland echotexture is heterogeneous. Thyroid vascularity is normal. Left Thyroid Lobe: 4.9 x 2.3 x 2.1 cm, volume 12.3 mL. Parenchyma: The gland echotexture is heterogeneous. Thyroid vascularity is normal. Isthmus: 0.39 cm in maximum AP dimension. Estimated total number of nodules greater than or equal to 1 cm: 2. Director Compensation nodules are described as follows: 1. Location: Upper, right thyroid lobe.. Size: 2.2 x 1.2 x 1.4 cm, volume 1.8 mL. Nodule characteristics: Composition: Solid/almost completely solid (2). Echogenicity: Isoechoic (1). Shape: Not taller than wide (0). Margins: Smooth (0). Echogenic Foci: None (0). ACR TI-RADS total points: 3 ACR TI-RADS category: 3 2. Location: Upper, right thyroid lobe.. Size: 0.6 x 0.4 x 0.5 cm, volume 0.06 mL. Nodule characteristics: Composition: Spongiform (0). Echogenicity: Shape: Not taller than wide (0). Margins: Smooth (0). Echogenic Foci: None 0 ACR TI-RADS total points: 0 ACR TI-RADS category: 1 3. Location: Upper, left thyroid lobe.. Size: 2.6 x 1.7 x 1.9 cm, volume 4.4 mL. Nodule characteristics: Composition: Solid/almost completely solid (2). Echogenicity: Hypoechoic (2). Shape: Not taller than wide (0). Margins: Smooth (0). Echogenic Foci: None 0 ACR TI-RADS total points: 4 ACR TI-RADS category: 4 NODES: No lymphadenopathy is seen in the tissue surrounding the thyroid gland. US/US thyroid IMPRESSION: ACR TI RADS 4, upper left thyroid lobe. ACR TI RADS 3, upper right thyroid lobe. [facility] Medical History Multinodular goiter PCOS (polycystic ovarian syndrome) Goiter Surgical History No pertinent past surgical history Social History Housing: Apartment Alcohol intake: never Patient Tobacco Use Status: Never used Tobacco e-Cigarette/Vaping Use: Never Used Second Hand Smoke Exposure: No service: No Current occupational status: employed Current occupation: OA Cognitive needs: No Hearing needs: No Vision needs: No Physical Exam Vital Signs: Last Vital Signs Pulse 89 04/28/25 12:39 BP 120/72 04/28/25 12:39 Pulse Ox 95 04/28/25 12:39 Oxygen Delivery Method Room Air 04/28/25 12:39 Assessment & Plan Assessment & Plan (1) Thyroid cancer: Code(s): C73 - Malignant neoplasm of thyroid gland Category: Medical Plan: 29-year-old female with no family history of thyroid cancer, with no personal history of head or neck radiation who is coming in today to establish care for nontoxic multinodular goiter. Ultrasound of the thyroid done March 2025, I reviewed the images myself which showed a right superior 2.2 cm solid, isoechoic nodule, I am concerned about extrathyroidal extension on this nodule, would classify this is TR 5 instead of TR 3, another solid hypoechoic left superior 2.6 cm TR 4 category nodule, both of these meet criteria for FNA. The right lower pole subcentimeter nodule appears low risk. 04/21/2025: Status post FNA of the right superior 2.2 cm nodule which came back as nondiagnostic, [place] category 1 and FNA of the left superior 2.6 cm nodule came back as malignant PTC ([place] category 6). I discussed with the patient that thyroid cancer in most cases is a slow growing indolent disease, and that 95% of the patients have good prognosis after thyroid surgery. I discussed with her that some patients depending on surgical pathology and post surgery thyroglobulin levels need radioactive iodine as additional treatment. Given that she has a nodule on the other side, with a diagnosis of [place] category 6, I would prefer for her to undergo total thyroidectomy as opposed to lobectomy but I told her that this would also be discussed with her when she sees the surgeon. At this time I will be referring her to Dr. Saira Olmedo at [facility] for total thyroidectomy. Discussed with the patient risks of hypothyroidism post surgery which is 100% in case of total thyroidectomy and a about 50% chance with lobectomy. Also discussed that there is usually less than 2% risks of hypoparathyroidism. Her vitamin-D was low at 17.3 from January 2025, she is on vitamin-D 2000 units daily, I have asked her to continue this for adequate vitamin-D supplementation to reduce the risk of hypocalcemia post surgery. Other than that I also discussed with her briefly risks of infection, bleeding, risk of damage to recurrent laryngeal nerves. I would also like to repeat the biopsy of her right superior nodule prior to surgery. He usually I wait for 3 months prior to repeating a biopsy but in her case since I would like things to move faster I would give her an 8 week gap and then rebook her for the right superior 2.2 cm thyroid nodule biopsy. This would help with surgical planning. At that time I would also look at her neck for any abnormal lymph nodes to see if she would need a CT scan prior to surgery. I did tell her that Dr. Saiar Olmedo also does an in office ultrasound to evaluate for any lymphadenopathy. patient does have significant compressive symptoms,normal TFTs from January 2025. All questions were answered. Patient verbalized understanding. She has support at home. Plan: - scheduled for repeat FNA of the right superior 2.2 cm in 8 weeks and a follow up 2 weeks after to discuss results -referral sent to Dr. Saira Olmedo at [facility] for evaluation for total thyroidectomy given malignant PTC on FNA of the left superior nodule -continue vitamin-D 2000 units daily (2) Multinodular goiter: Code(s): E04.2 - Nontoxic multinodular goiter Category: Medical Plan: See above Plan I spent 45 minutes in reviewing the record, seeing the patient and documenting in the medical record. Orders: Orders 2 US biopsy thyroid Today C73 - Malignant neoplasm of thyroid gland, E04.2 - Nontoxic multinodular goiter Referrals 2 General Surgery Referral C73 - Malignant neoplasm of thyroid gland Patient Instructions: Continue vitamin D supplements, make sure you are taking at least 1000 units (25mcg) to 2000 units (50 mcg ) daily We will refer you for surgery to Dr. Saira Olmedo at [facility], if yoy dont hear from anyone in the next 2 weeks please reach out I will also biopsy again your right sided nodule on June 09 Coding Level of Care Code Est Pt Level 5 (06436) Diagnoses Thyroid cancer C73 Multinodular goiter E04.2 Time Spent (min) 45
--- OUTSIDE RECORDS SUMMARY | 2025-04-28 13:18 | XMS_ITS | Clinical Summary ---
Author Organization [facility] ity Address [address] [place] [address] Care Team Providers Care Senior Software Test Engineer Name Role Phone Unavailable Primary Care Provider [...]
== END 2025-04-28 13:21 | disposition home or self-care (01) ==
LOC: HO.ENCR 12:37
PROVIDERS: PCP Internal Medicine; Visit Provider Student in an Organized Health Care Education/Training Program
DX: C73 Malignant neoplasm of thyroid gland (principal); E04.2 Nontoxic multinodular goiter
CPT/HCPCS: 99215

== ENCOUNTER → 2025-04-28 12:36 | Outpatient (BNVA) | payer OTHER, SELFPAY | PROVIDERS: PCP Internal Medicine; Visit Provider Student in an Organized Health Care Education/Training Program ==

== ENCOUNTER → 2025-05-21 15:25 | Outpatient (BNVA) | payer OTHER, SELFPAY | PROVIDERS: PCP Internal Medicine; Visit Provider Surgery ==

== ENCOUNTER 2025-06-03 08:30 | Outpatient (REF) | payer OTHER, SELFPAY ==
[2025-06-03 11:07] LABS: Resp Syncy Virus RNA Qual PCR NEGATIVE (Negative); SARS COV2 PCR INHOUSE NEGATIVE (Negative)
== END 2025-06-03 08:31 | disposition home or self-care (01) ==
LOC: HO.LAB 08:30
PROVIDERS: Nurse Practitioner Family; PCP Internal Medicine
DX: J06.9 Acute upper respiratory infection, unspecified (principal)
CPT/HCPCS: 87637

== ENCOUNTER 2025-06-03 08:30 | Outpatient (AMB) | payer OTHER, SELFPAY ==
--- OUTSIDE RECORDS SUMMARY | 2025-06-03 08:36 | XMS_ITS | Clinical Summary ---
Author Organization [facility] ity Address [address] [place] [address] Care Team Providers Care Pest Control Worker Helper Name Role Phone Unavailable Primary Care Provider [...]
--- OUTSIDE RECORDS SUMMARY | 2025-06-03 08:36 | XMS_ITS | Continuity of Care Document ---
Author Organization [facility] [address] [facility] [address] [facility] [address] [place] [address] Phone [phone] Care Team Providers Care Pharmacy Delivery Driver Name Role Phone Avel Eisenberg MD Care Team Information R eiver [phone] Problems Active Problems Provider Date Polycystic ovary syndrome RUSS Novak Ons et: 01/23/2024 Attention deficit hyperactivity disorder RUSS Novak Onset: 01/23/2024 Obstructive sleep apnea syndrome RUSS Novak Onset: 01/23/2024 Goiter RUSS Novak Onset: 2023 Social History Type Date Description Comments Sex Female Sex Unknown Tobacco Use Start: Unknown Never Smoked Cigarettes ETOH Use Occasionally consumes alcoho l Allergies and adverse reactions Active Allergies Criticality Reaction Severity Comments Date NKDA Unable to assess criticality 01/23/2024 Shrimp Unable to assess criticality 01/23/2024 Medications Active Medications SIG Qnty Indications Ordering Provider Date [id number] Tablets 1 tablet by mouth at 11 [...] mIU/mL 3 Dhea-Sulfate 02/14/2024 [facility] Dhea-Sulfate 295.0 g/dL 84.8-378. 0 Cortisol 02/14/2024 [facility] Cortisol 7.9 g/dL 6.2-19.4 4 Estradiol 02/14/2024 [facility] Estradiol 51.7 pg/mL 5 17-Oh Progesterone LCMS 02/14/2024 [facility] 17-Oh Progesterone LCMS 57 ng/dL 6 TestT+TestF+SHBG 02/14/2024 [facility] Testosterone 83 ng/dL High 13-71 Sex Horm Bindin g Glob, Serum 22.9 nmol/L Low 24.6-122. 0 Free Testosterone(Dire ct) 8.1 pg/mL High 0.0-4.2 1 Test(s) 198375-90-KH Progesterone LCMS was developed and its performance characteristics determined by [employer]. It has not been cleared or approved [...] Treatment Future Appointment(s):* 08/27/2025 8:00 am - Alo Sandoval NP at Main Office 02/23/2025 - RUSS Novak* E28.2 Polycystic ovarian syndrome * R53.83 Other fatigue * E66.01 Morbid (severe) obesity due to excess calories * G47.30 Sleep apnea, unspecified * Z68.44 Body mass index [BMI] 60.0-69.9, adult * Functional Status Description No Information Available Mental Status Description No Information Available Referrals Description No Information Available
[2025-06-03 08:42] VITALS: BP 124/86; PULSE 99; TEMP 36.6; O2SAT 95; BMI 60.8
--- NOTE | 2025-06-03 08:42 | AM.OFFWIN_ITS ---
Intake Vital Signs 06/03/25 08:42 Height 5 ft 3 in Weight 343 lb BMI 60.8 BP 124/86 Blood Pressure Location Lt brachial Position Sitting Pulse 99 Pulse Source Pulse Oximeter Temp 97.8 F Pulse Oximetry (%) 95 Oxygen Delivery Method Room Air Intake Visit Reasons: EP Congested, sob, fever, body aches Intake Note: presents with sinus congestion and pain, short of breath, fever, body aches, mild throat pain, headache Patient Tobacco Use Status: Never used Tobacco Allergies metformin Allergy (Intermediate, Verified 06/03/25 08:49) Stomach Upset Do you need a note to return to daycare/school/sports/work: Yes HPI HPI Comments History of Present Illness Details 29 y/o Female patient who presents to [facility] walk in clinic with c/o URI symptoms. Pt reports Sinus congestion/pressure, SOB, Body aches, Fatigue, mild sore-throat and headaches. She has not used any OTC remedies. Family members in the same household with similar symptoms. [facility] Medical History (Updated 06/03/25 @ 09:21 by Adela Aldana NP) Acute respiratory disease Thyroid cancer Multinodular goiter PCOS (polycystic ovarian syndrome) Goiter Surgical History No pertinent past surgical history Family History (Updated 05/21/25 @ 15:38 by Day Holm CMA) Mother No problems noted. Father No problems noted. Social History Housing: Apartment Alcohol intake: never Patient Tobacco Use Status: Never used Tobacco e-Cigarette/Vaping Use: Never Used Second Hand Smoke Exposure: No service: No Current occupational status: employed Current occupation: OA Cognitive needs: No Hearing needs: No Vision needs: No Review of Systems Const All systems reviewed & are unremarkable except as noted in HPI and below Physical Exam Vital Signs: Last Vital Signs Temp 97.8 F 06/03/25 08:42 Pulse 99 06/03/25 08:42 BP 124/86 06/03/25 08:42 Pulse Ox 95 06/03/25 08:42 Oxygen Delivery Method Room Air 06/03/25 08:42 BMI result Body Mass Index 60.8 Const General: no acute distress Nutritional Appearance: obese morbidly obese Orientation/consciousness: patient oriented x3 HEENT Head: Yes normocephalic Ears: external ears normal and TM abnormal with fluid behind the TM bilateral General nose exam: Normal external nose present and Nasal discharge present Face and sinus: Yes sinuses nontender Mouth: moist mucous membranes Throat: Yes uvula midline Resp Effort & Inspection: normal respiratory effort, able to speak in complete sentences, no audible wheezes and no cough Auscultation: clear to auscultation bilaterally, no crackles, no rales, no rhonchi and no wheezes Cardio Heart sounds: S1 normal heart sound present and S2 normal heart sound present Neuro General: patient oriented x3 Assessment & Plan Assessment & Plan (1) Acute respiratory disease: Code(s): J06.9 - Acute upper respiratory infection, unspecified Plan: Ordered SARs Ordered Cough and cold remedies Acetaminophne for pain relief Rest and hydrate well with warm fluids. Orders: Orders SARS-CoV2/FLU/RSV Today J06.9 - Acute upper respiratory infection, unspecified Medications: New pseudoephedrine HCl ER (Sudafed 12 Hour) 120 mg PO Q12H 14 tabs 0RF 7 days J06.9 - Acute upper respiratory infection, unspecified acetaminophen 1,000 mg (2 x 500 mg) PO Q6H PRN 60 caps 0RF pain J06.9 - Acute upper respiratory infection, unspecified benzonatate 200 mg (2 x 100 mg) PO BID 60 caps 0RF J06.9 - Acute upper respiratory infection, unspecified Coding Level of Care Code Est Pt Level 4 (72945) Diagnoses Acute respiratory disease J06.9 Time Spent (min) 20
== END 2025-06-03 09:42 | disposition home or self-care (01) ==
PROVIDERS: PCP Internal Medicine; Visit Provider Nurse Practitioner Family
DX: J06.9 Acute upper respiratory infection, unspecified (principal)

== ENCOUNTER 2025-06-23 08:28 | Outpatient (AMB) | payer OTHER, SELFPAY ==
--- OUTSIDE RECORDS SUMMARY | 2025-06-23 08:41 | XMS_ITS | Clinical Summary ---
Author Organization [facility] [facility] ity Address [address] [place] [address] Care Team Providers Care Spreader Operator Automatic Name Role Phone Unavailable Primary Care Provider [...] Vaccine ( - 2023-2 5 season) 2024 Depression Screening 12/02/2024 Influenza Vaccine (#1) 2025 HIB Vaccines Aged Out No longer [...] 5 Years) and At-Risk Patients (6 to 49 Years) Aged Out No longer eligible b ased on patient's age to complete this topic RSV Immunization Patients Un curt 20 months Aged Out No longer eligible b ased on patient's age to complete this topic Varicella Vaccines Aged Out No longer eligible based on patient's age to complete this topic
--- OUTSIDE RECORDS SUMMARY | 2025-06-23 08:41 | XMS_ITS | Continuity of Care Document ---
Author Organization [facility] [address] [facility] [address] [place] [address] Phone [phone] Care Team Providers Care Ship Loader Name Role Phone Avel Eisenberg MD Care Team Information R eiver [phone] Problems Active Problems Provider Date Polycystic ovary [...] Medications SIG Qnty Indications Ordering Provider Date Xtuodtiwabtdl8cf Tablets 1 tablet by mouth at 11 [...] ct) 8.1 pg/mL High 0.0-4.2 1 Test(s) 408241-40-QF Progesterone LCMS was developed and its performance characteristics determined by [employer]. It has not been cleared or approved [...]
--- NOTE | 2025-06-23 10:04 | MHC.OFFVISWM ---
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 60.8 *: Details: Start time: 9.50am, End time: 10.40am I spent 45 minutes speaking with the patient on the phone plus an additional 5 minutes reviewing and updating records for a total of 50 minutes HPI Comments Details: Previous weight loss efforts: Keto diet, intermittent fasting Wakes up: 5am, Sleeps: 10pm Breakfast: occasionally at 10am (eggs, pancake) instead of lunch Lunch: 12pm (pasta, rice, sandwich) Dinner: 6-7pm (rice, pasta, salmon, chicken) Snacks: none Exercise: none Beverages: Coffee (none), Tea: none, Soda: 1-2 diet coke/d, Juice: none, ETOH: none PFSH Medical History (Updated 06/23/25 @ 10:09 by Julien Slaughter MD) Anxiety Depression Morbid obesity Acute respiratory disease Thyroid cancer Multinodular goiter PCOS (polycystic ovarian syndrome) Goiter Surgical History No pertinent past surgical history Family History (Updated 05/21/25 @ 15:38 by Day Holm CMA) Mother No problems noted. Father No problems noted. Social History Housing: Apartment Alcohol intake: never Patient Tobacco Use Status: Never used Tobacco e-Cigarette/Vaping Use: Never Used Second Hand Smoke Exposure: No service: No Current occupational status: employed Current occupation: OA Cognitive needs: No Hearing needs: No Vision needs: No Telehealth Telehealth Telehealth Platform: Telephone Location of provider rendering services: practice address Location of patient: address on file Patient Identification confirmed using: Name, : Yes Telehealth method: voice only Patient verbally consented to treatment: Yes Patient verbally consented to billing insurance company: Yes Patient informed of any privacy concerns related to visit: Yes Minutes spent on Phone/Video with Pt.: 50 Assessment & Plan Assessment & Plan (1) Morbid obesity: Code(s): E66.01 - Morbid (severe) obesity due to excess calories Category: Medical Plan: 1. Plan for lap sleeve gastrectomy. If diaphragmatic or ventral hernias are present at time of surgery, these will be repaired laparoscopically as well. I emphasized the importance of close follow-up, adherence to instructions and good communication. The surgery does not replace the need to change your lifestlyle which is the cause of the obesity problem. The surgery provides the motivation to try again to change your lifestyle, it reduces the appetite and make the transition to a better lifestyle easier and doubles the amount of weight you would lose compared to doing the lifestyle change without the surgery. You will need to be on a liquid diet with protein shakes for 2 weeks before surgery to maximize weight loss and boost your nutritional status to recover better from surgery and also for the first two weeks after surgery to let the stomach heal before we introduce other foods. After the first 2 weeks we will introduce protein bars and soft foods like scrambled eggs, cottage cheese and yogurt and after the 6th week will introduce meat, fish and cooked vegetables in small amounts. Over time you should be able to eat everything in small amounts. Side effects like nausea, vomiting, heartburn or abdominal pain are not common in the practice unless you are not following in the practice. This operation requires lifetime commitment to following in our practice and communication with me. You will much less weight and experience side effects if you don?t communicate or not following in the practice. Complications are rare and in our practice is about 1/10 of the national average. However, you can develop bleeding that may require transfusion (hasn?t happened for year in the practice), you may from complications (we did not have any deaths in the practice) and infections. Infections are usually a result of breakdown in communication or not understanding or following directions correctly. They are difficult to treat, they can happen during the first 6 weeks, they may require to be in the hospital for weeks or even months, not being able to eat by mouth and you may have drains and surgeries to try and correct the issue. Other risks and complications include possible conversion to an open procedure, leaks, small bowel obstruction, blood clots, cardiac, or pulmonary complications, as ferry terminal agent complications such as ulcers, insufficient weight loss and vitamin deficiencies. 2. You will receive a link of our software uri to generate an individualized nutritional and exercise plan specific for you. Please send me a screenshot of the plans you will generate Meal to include lean meat (beef, fish, pork, turkey, chicken), or french yogurt, or egg whites, or beans with a salad with olive oil and fruits (berries, pears, apples, kiwi). Avoid salt, breads, potatoes, rice, pasta, desserts. 3. If you choose shakes, each shake would be drunk slowly, like coffee in a period of 2 hours. 4. If you choose bars, cut each bar in 4 pieces and eat each piece in 30min to make each bar last 2 hours. 5. I emphasized the importance of measuring accurately the food portion and measure it when serving the food in plate 6. The meal portions include a specific number of forks of meat and salad. You always eat the meat portion but you can replace up to half of salad/vegetables portion with rice, potatoes or pasta, or a fruit if you like. The less you do it the better weight loss will be. 7. One full-size fork is what it can be scooped on the fork without falling aside and not what can be bit with the fork. Use regular forks like those you find in a typical restaurant. 8. Please use your body composition scale and send me weight measurements as soon as possible and then once a week. Always include your diet and exercise plan. 9. The best choice would be to purchase a stationary bike, elliptical or treadmill at home that can track calories. You can use the [employer] uri to create an exercise plan. 10. It is important of avoiding and for at least 18 months postoperatively and has been discussed at the infosession. 11. Goal is to lose at least 1.5-2lbs per week 12. Goal to lose 10% of your weight before surgery, which is about 37lbs. Ultimate weight goal: 300lbs before surgery 13. Please follow the diet plan exactly without any change. If you don't like something about the plan or you feel hungry you need to communicate with me so I can help you revise the plan. You should not change the plan yourself. 14. To be scheduled for EGD to assess the stomach's anatomy.The possibility of biopsies was discussed. Patient needs to avoid use of NSAIDs and aspirin for 1 week prior to EGD. You must be on liquids only the day before your endoscopy. Risks of perforation and bleeding was discussed with the patient. This will be an outpatient procedure with IV sedation.
[2025-06-23 10:13] VITALS: BMI 59.7
== END 2025-06-23 10:42 | disposition home or self-care (01) ==
LOC: HO.HBS 08:28
PROVIDERS: PCP Internal Medicine; Visit Provider Surgery
DX: E66.01 Morbid (severe) obesity due to excess calories (principal); Z68.43 Body mass index [BMI] 50.0-59.9, adult
CPT/HCPCS: 99204

== ENCOUNTER → 2025-07-01 14:53 | Outpatient (REF) | payer OTHER, SELFPAY ==
--- OUTSIDE RECORDS SUMMARY | 2025-07-01 14:56 | XMS_ITS | Clinical Summary ---
Author Organization [employer] [facility] ity Address [address] [place] [address] Care Team Providers Care Community Liaison Officer Name Role Phone Unavailable Primary Care Provider [...]
--- OUTSIDE RECORDS SUMMARY | 2025-07-01 14:56 | XMS_ITS | Continuity of Care Document ---
Author Organization [facility] [address] [place] [address] Phone [phone] Care Team Providers Care User Support Analyst Supervisor Name Role Phone Avel Eisenberg MD Care Team Information R eiver [phone] Problems Active Problems Provider Date Polycystic ovary [...] Active Allergies Criticality Reaction Severity Comments Date No Known Drug Allergies 01/23/2024 Shrimp Unable to assess criticality 01/23/2024 Medications Active Medications SIG Qnty Indications Ordering Provider Date Esbrwjflvrpto8uz Tablets 1 tablet by mouth at 11 [...] ct) 8.1 pg/mL High 0.0-4.2 1 Test(s) [id number] Progesterone LCMS was developed and its performance characteristics determined by [facility]. It has not been cleared or approved [...]
== END ==
LOC: HO.SL 14:53
PROVIDERS: PCP Internal Medicine; Visit Provider Physician Assistant Medical
DX: G47.19 Other hypersomnia (principal); G47.33 Obstructive sleep apnea (adult) (pediatric); R06.83 Snoring
CPT/HCPCS: 95806

== ENCOUNTER → 2025-07-01 15:01 | Outpatient (BNV) | payer OTHER, SELFPAY | PROVIDERS: PCP Internal Medicine; Visit Provider Internal Medicine | DX: G47.19 Other hypersomnia (principal); G47.33 Obstructive sleep apnea (adult) (pediatric) | CPT/HCPCS: 95806 ==

== ENCOUNTER 2025-07-21 08:07 | Outpatient (REF) | payer OTHER, SELFPAY ==
--- OUTSIDE RECORDS SUMMARY | 2025-07-21 08:30 | XMS_ITS | Continuity of Care Document ---
Author Organization [facility] [address] [place] [address] Phone [phone] Care Team Providers Care Gut Dropper Name Role Phone Avel Eisenberg MD Care Team Information R eiver [phone] Problems Active Problems Provider Date Polycystic ovary [...] Medications SIG Qnty Indications Ordering Provider Date Lqhqtvpsizlwv9jm Tablets 1 tablet by mouth at 11 pm 1tabs Mary Martinez M.D. 02/23/2025 Zepbound2.5mg/0.5ML Solution Auto-Inject inject 0.5 ml weekly 2ml Mary Martinze M.D. 02/23/2025 Vital Signs Date Vital Result [...] ct) 8.1 pg/mL High 0.0-4.2 1 Test(s) [id number] Progesterone LCMS was developed and its performance characteristics determined by [facility]. It has not been cleared or approved [...]
--- OUTSIDE RECORDS SUMMARY | 2025-07-21 08:30 | XMS_ITS | Clinical Summary ---
Author Organization [employer] [facility] ity Address [address] [place] [address] Care Team Providers Care Salesperson Men'S Furnishings Name Role Phone Unavailable Primary Care Provider [...]
[2025-07-21 12:06] LABS: Free T4 (Free Thyroxine) 1.04 ng/dL (0.71-1.85); Thyroid Stimulating Hormone 1.14 uIU/mL (0.32-4.0)
[2025-07-22 17:53] LABS: Thyroglobulin 0.3 ng/mL; Thyroglobulin Antibodies <1 IU/mL (< or = 1)
== END 2025-07-21 08:08 | disposition home or self-care (01) ==
LOC: HO.10HDL 08:07
PROVIDERS: Visit Provider Student in an Organized Health Care Education/Training Program
DX: E04.2 Nontoxic multinodular goiter (principal); C73 Malignant neoplasm of thyroid gland
CPT/HCPCS: 36415; 84432; 84439; 84443; 86800

== ENCOUNTER 2025-07-27 08:35 | Outpatient (AMB) | payer OTHER, SELFPAY ==
[2025-07-27 08:38] VITALS: BP 128/74; PULSE 98; O2SAT 98; BMI 42.2
--- NOTE | 2025-07-27 08:38 | MHC.OFFVIS ---
Vital Signs 07/27/25 08:38 Height 5 ft 3 in Weight 238 lb 2 oz BMI 42.2 BP 128/74 Blood Pressure Location Rt brachial Position Sitting Pulse 98 Pulse Source Pulse Oximeter Pulse Oximetry (%) 98 Oxygen Delivery Method Room Air Intake Visit Reasons: 3m follow up Intake Note: Patient presents follow up JACI. HST in chart(AHI-10, RODRIGUEZ-82%. APAP 5-20cm). Ui Developer With Angular Js Required: No Accompanied by: Self / Same As Patient Allergies metformin Allergy (Intermediate, Verified 07/27/25 08:42) Stomach Upset HPI Comments Details: 30 year old female with recent h/o thyroidectomy presents for a follow up visit of HST. HST c/w NESS of 10, and O2 Nadirs to 83%, and reviewed with patient. She recently underwent a thyroidectomy at [facility], and is now being followed by End[facility] for possible ablation. She was unable to tolerate the mask at night and would tear it off of her face due to claustrophobia. She usually goes to sleep at 9pm to 10pm on her couch. She gasps for air and will wake herself up due to apneas. Her bp is stable today been taking a statin and Hctz. Her mood is stable, memory is poor and she is concerned about radioactive ablation. Denies RLS and denies migraines now that her bp has improved. She is seeing weight management for nutritional counseling. [facility] Medical History Anxiety Depression Morbid obesity Acute respiratory disease Thyroid cancer Multinodular goiter PCOS (polycystic ovarian syndrome) Goiter Surgical History History of thyroidectomy, total No pertinent past surgical history Family History Mother No problems noted. Father No problems noted. Social History Housing: Apartment Alcohol intake: never Patient Tobacco Use Status: Never used Tobacco e-Cigarette/Vaping Use: Never Used Second Hand Smoke Exposure: No service: No Current occupational status: employed Current occupation: OA Cognitive needs: No Hearing needs: No Vision needs: No Physical Exam Vital Signs: Last Vital Signs Pulse 98 07/27/25 08:38 BP 128/74 07/27/25 08:38 Pulse Ox 98 07/27/25 08:38 Oxygen Delivery Method Room Air 07/27/25 08:38 BMI result Body Mass Index 42.2 Const Other: BMI is 59.9 Weight is 338lb General: cooperative, comfortable and no acute distress Nutritional Appearance: obese Orientation/consciousness: patient oriented x3 Eyes Pupils: Equal, round and reactive pupils present Neck Neck: Yes full ROM Neuro General: patient oriented x3 and moves all extremities Cranial nerves: Yes Facial sensation intact/muscles of mastication intact, Yes Equal, round and reactive pupils present, Yes Normal accommodation reflex present, Yes Midline tongue present, Yes Ability to bilaterally rotate head present and Yes Ability to bilaterally elevate shoulders present Gait exam (Neuro): Normal gait present Motor exam (neuro): 5/5 motor strength present throughout and Normal motor muscle tone present throughout Psych Appearance: grossly normal Affect: normal affect Attitude: cooperative Results Reviewed Results Reviewed: HST c/w NESS 10 and Oxygen Nadirs to 83%, start cpap therapy. Assessment & Plan Assessment & Plan (1) JACI (obstructive sleep apnea): Code(s): G47.33 - Obstructive sleep apnea (adult) (pediatric) Category: Medical (2) Loud snoring: Code(s): R06.83 - Snoring Category: Medical (3) Excessive daytime sleepiness: Code(s): G47.19 - Other hypersomnia Category: Medical Plan JACI HST c/w NESS 10 and O2 Nadirs to 83%, will start her on Cpap therapy [id number] and f/u for compliance. Continue Weight management for elevated BMI 42.2 today. Continue walking and drinking plenty of water. Coding Level of Care Code Est Pt Level 4 (57482) Diagnoses JACI (obstructive sleep apnea) G47.33 Loud snoring R06.83 Excessive daytime sleepiness G47.19
--- OUTSIDE RECORDS SUMMARY | 2025-07-27 08:46 | XMS_ITS | Clinical Summary ---
Author Organization [employer] [facility] ity Address [address] [place] [address] Care Team Providers Care Actuarial Analyst Name Role Phone Unavailable Primary Care [...]
--- OUTSIDE RECORDS SUMMARY | 2025-07-27 08:46 | XMS_ITS | Continuity of Care Document ---
Author Organization [facility] [address] [place] [address] Phone [phone] Care Team Providers Care Muck Boss Name Role Phone Avel Eisenberg MD Care Team Information R eiver [phone] Problems Active Problems Provider Date Polycystic ovary [...] Medications SIG Qnty Indications Ordering Provider Date Locsbgyigbnhm7vt Tablets 1 tablet by mouth at 11 [...] ct) 8.1 pg/mL High 0.0-4.2 1 Test(s) [id number] Progesterone LCMS was developed and its performance characteristics determined by [facility]. It has not been cleared or approved [...]
== END 2025-07-27 09:08 | disposition home or self-care (01) ==
LOC: HO.HSMS 08:35
PROVIDERS: PCP Internal Medicine; Visit Provider Physician Assistant Medical
DX: G47.33 Obstructive sleep apnea (adult) (pediatric) (principal); R06.83 Snoring; G47.19 Other hypersomnia
CPT/HCPCS: 99214

== ENCOUNTER 2025-07-28 13:00 | Outpatient (AMB) | payer OTHER, SELFPAY ==
[2025-07-28 13:04] VITALS: BP 112/72; PULSE 107; O2SAT 98
--- NOTE | 2025-07-28 13:04 | A.OFFVIS_ITS ---
Vital Signs 3 07/28/25 13:04 Height 5 ft 3 in BP 112/72 Blood Pressure Location Lt brachial Position Sitting Pulse 107 H Pulse Source Pulse Oximeter Pulse Oximetry (%) 98 Oxygen Delivery Method Room Air Intake Visit Reasons: Post op appt. Intake Note: Patient present today for post op visit. Ward Secretary Required: No Accompanied by: Self / Same As Patient Allergies metformin Allergy (Intermediate, Verified 07/27/25 08:42) Stomach Upset Medication List - Last Reconciled 07/28/25 by Pamela Prieto MD atorvastatin 10 mg PO BEDTIME cholecalciferol (vitamin D3) 50 mcg PO DAILY hydrochlorothiazide 12.5 mg PO DAILY 30 days levothyroxine 200 mcg PO DAILY HPI Comments Details: 30-year-old female here today for follow up of papillary thyroid cancer, status post total thyroidectomy and central lymphadenectomy 06/16/[address] 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 Based on columnar cell type. Here today for follow up. HPI Saw [facility], was following with them for PCOS , and expressed concerns about difficulty swallowing but no imaging was done. PCP ordered the US done in March 2025. Ultrasound of the thyroid done March 2025, I reviewed the images myself which showed a right superior 2.2 cm solid, isoechoic nodule, I am concerned about extrathyroidal extension on this nodule, would classify this is TR 5 instead of TR 3, another solid hypoechoic left superior 2.6 cm TR 4 category nodule, both of these meet criteria for FNA. The right lower pole subcentimeter nodule appears low risk. Patient currently denies heat or cold intolerance, diarrhea or constipation, , weight changes, mood changes, low energy, changes in appearance of eyes or vision changes, tremors, increased diaphoresis or dry skin. ? Reports intermittent palpitations, some anxiety. Patient describes difficulty swallowing since 6 months, stable, both with liquids and solids , mainly with dry bites. , Denies pain on swallowing or voice changes. Endorse difficulty breathing since the past 6 months . Endorses pressure sensation in neck when she lays down flat. Patient denies any history of childhood neck radiation. Denies having ever used lithium, amiodarone or biotin supplements. Patient denies any family history of thyroid cancer. Maternal grandmother had hypothyroidism. 04/21/2025: Status post FNA of the right superior 2.2 cm nodule which came back as nondiagnostic, Gillett category 1 and FNA of the left superior 2.6 cm nodule came back as malignant PTC (Gillett category 6). Interval history 07/28/2025 06/16/2025: Status post total thyroidectomy with central compartment lymphadenectomy with Dr. 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 Based on columnar cell type. Postoperatively on levothyroxine 200 mcg daily 07/21/2025: TSH 1.1, free T4 1.04, TG 0.4, TG antibody less than 1 Physical exam General: sitting comfortably in no acute distress HEENT: normocephalic/atraumatic, Neck: supple, well-healing scar Cardiac: normal heart sounds Pulm: normal breath sounds B/L, no added breath sounds Abd: not distended, no tenderness Extremities: no edema, no signs of myxedema Neuro: AAO x3, Speech: normal, no facial droop, moving all 4 extremities Laboratory Tests 02/26/25 09:20 TSH 0.81 Free T4 1.00 Free T3 3.7 Total T3 114 Laboratory Tests 02/26/25 07/21/25 09:20 08:10 TSH 0.81 1.14 Free T4 1.00 1.04 Free T3 3.7 Thyroglobulin 0.4 H Thyroglobulin Antibody <1 US THYROID March 2025 CLINICAL INFORMATION: Nontoxic goiter, unspecified. COMPARISON: None available. TECHNIQUE: Linear transducer grayscale and color Doppler examination with attention to the region of the thyroid. FINDINGS: SIZE: Measurements of the thyroid lobes and nodules are given in sagittal, anteroposterior and transverse dimensions respectively. Right Thyroid Lobe: 4.8 x 1.7 x 1.9 cm, volume 8.1 mL. Parenchyma: The gland echotexture is heterogeneous. Thyroid vascularity is normal. Left Thyroid Lobe: 4.9 x 2.3 x 2.1 cm, volume 12.3 mL. Parenchyma: The gland echotexture is heterogeneous. Thyroid vascularity is normal. Isthmus: 0.39 cm in maximum AP dimension. Estimated total number of nodules greater than or equal to 1 cm: 2. Inseam Trimmer nodules are described as follows: 1. Location: Upper, right thyroid lobe.. Size: 2.2 x 1.2 x 1.4 cm, volume 1.8 mL. Nodule characteristics: Composition: Solid/almost completely solid (2). Echogenicity: Isoechoic (1). Shape: Not taller than wide (0). Margins: Smooth (0). Echogenic Foci: None (0). ACR TI-RADS total points: 3 ACR TI-RADS category: 3 2. Location: Upper, right thyroid lobe.. Size: 0.6 x 0.4 x 0.5 cm, volume 0.06 mL. Nodule characteristics: Composition: Spongiform (0). Echogenicity: Shape: Not taller than wide (0). Margins: Smooth (0). Echogenic Foci: None 0 ACR TI-RADS total points: 0 ACR TI-RADS category: 1 3. Location: Upper, left thyroid lobe.. Size: 2.6 x 1.7 x 1.9 cm, volume 4.4 mL. Nodule characteristics: Composition: Solid/almost completely solid (2). Echogenicity: Hypoechoic (2). Shape: Not taller than wide (0). Margins: Smooth (0). Echogenic Foci: None 0 ACR TI-RADS total points: 4 ACR TI-RADS category: 4 NODES: No lymphadenopathy is seen in the tissue surrounding the thyroid gland. US/US thyroid IMPRESSION: ACR TI RADS 4, upper left thyroid lobe. ACR TI RADS 3, upper right thyroid lobe. [facility] Medical History Anxiety Depression Morbid obesity Acute respiratory disease Thyroid cancer Multinodular goiter PCOS (polycystic ovarian syndrome) Goiter Surgical History History of thyroidectomy, total No pertinent past surgical history Family History Mother No problems noted. Father No problems noted. 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 Based on columnar cell type. Here today for follow up. Postoperatively she has been started on levothyroxine 200 mcg daily. 07/21/2025: TSH 1.1, free T4 1.04, TG 0.4, TG antibody less than 1 She is now 6 weeks postoperative, TG looks reassuring, however given intermediate risk of recurrence we would want to keep her TSH between 0.1-0.5. Given columnar cell type with a intermediate risk of recurrence I would lean towards giving her 30 mCi of remnant ablation. Explained to the patient radioactive iodine scan is administered in 2 ways. Most commonly we use Thyrogen-stimulated TSH. And we will be using Thyrogen protocol with her. Thyrogen injections are given on Saturday and Saturday followed by labs and radioactive iodine pill on Saturday. Then sometime around next week usually on Saturday or Saturday of the following week the patient returns for a scan. Explained to patient that there will be need for test during this treatment as well. LMP: Irregular periods, has not had. For a while. She is sexually active, not using contraception. Discussed importance of contraception and to avoid for a year after radioactive iodine. Also discussed need of isolation during treatment. Given multiple educational material. Discussed side effects of sialadenitis, excess risk of secondary malignancies (however data is heterogenous inequality of evidence is generally low, the magnitude of risk of secondary malignancies that is absolute risk appears to be small. In an analysis of 36,000 patient has been well differentiated thyroid cancer the 20 year cumulative incidence of a 2nd solid malignancy was 5.6% for radioiodine treated patients compared with 5% for those not treated with radioiodine and at 30 years increased to 12.5 versus 10.2%. The 5 year cumulative incidence rate of 2nd hematologic malignancies was 0.1% for radioiodine treated patient's versus 0.05% for the was not treated with radioiodine in 20 years increased to 0.6% versus 0.37%.), transient decrease in ovarian function. Discussed with patient that we wait at least 2 months post surgery before administrating radioactive iodine to allow for adequate healing. Discussed low iodine diet that needs to be started 2 weeks prior to radioactive iodine treatment and continuing until 3-4 days after her scan. Gave her resources in print for low iodine diet. All questions were answered. Patient verbalized understanding. She has support at home. Plan: - increase levothyroxine to 225 mcg daily -ordered TSH, free T4, TG, TG antibodies to be repeated in 4-6 weeks -30 mCi of remnant ablation of radioactive iodine with Thyrogen, referral sent to [facility] -follow up in 8 weeks (2) Hypothyroidism: Code(s): E03.9 - Hypothyroidism, unspecified Category: Medical Qualifiers: Hypothyroidism type: postoperative Qualified Code(s): E89.0 - Postprocedural hypothyroidism Plan: 07/21/2025: TSH 1.1, free T4 1.04, TG 0.4, TG antibody less than 1 She is now 6 weeks postoperative, TG looks reassuring, however given intermediate risk of recurrence we would want to keep her TSH between 0.1-0.5. Plan: - increase levothyroxine to 225 mcg daily -ordered TSH, free T4, TG, TG antibodies to be repeated in 4-6 weeks Plan I spent 45 minutes in reviewing the record, seeing the patient and documenting in the medical record. Orders: Orders 2 NM I-131 Thyroid Therapy Today C73 - Malignant neoplasm of thyroid gland Thyroglobulin 4 Weeks C73 - Malignant neoplasm of thyroid gland, E03.9 - Hypothyroidism, unspecified Thyroglobulin Tumor Marker 4 Weeks C73 - Malignant neoplasm of thyroid gland, E03.9 - Hypothyroidism, unspecified NM thyroid ca whole body Today Thyroid Stimulating Hormone 4 Weeks C73 - Malignant neoplasm of thyroid gland, E03.9 - Hypothyroidism, unspecified Free T4 (Free Thyroxine) 4 Weeks C73 - Malignant neoplasm of thyroid gland, E03.9 - Hypothyroidism, unspecified Thyroglobulin Antibodies 4 Weeks C73 - Malignant neoplasm of thyroid gland, E03.9 - Hypothyroidism, unspecified Medications: New 2 levothyroxine (Levoxyl) Take 200 mcg tablet with 25 mcg tablet daily for a total dose of 225 mcg daily 200 mcg PO DAILY 30 tabs 6RF C73 - Malignant neoplasm of thyroid gland, E03.9 - Hypothyroidism, unspecified levothyroxine (Levoxyl) Take 200 mcg tablet with 25 mcg tablet daily for a total dose of 225 mcg daily 25 mcg PO DAILY 30 tabs 6RF C73 - Malignant neoplasm of thyroid gland, E03.9 - Hypothyroidism, unspecified Patient Instructions: Increase levothyroxine to 225 mcg daily (200 plus 25 mcg tablets ) Do blood work in 4-6 weeks Roughly your process will look like this Saturday: Thyrogen injection at [facility] Saturday: Thyrogen injection at [facility] plus labs Saturday: Labs in cellular tower climber at [facility] and then radioactive iodine pill at [facility] Saturday: Labs at [facility] The week after usually 4-7 days after the radioactive pill you get a scan at [facility] Radiation safety instructions: Your therapeutic procedure poses no significant safety hazard to anyone in your vicinity, but as a prudent precaution, the following [facility] radiation safety measures should be followed. It should particularly minimize close personal contact (i.e. hugging, kissing except) and avoid contract with individuals. Avoid prolonged intimate contact including sex for minimum of 21 days Avoid crowded public modes of transportation for extended periods for at least 5 days Avoid close and/or prolonged contact with toddlers and small children for at least 3 days Avoid hot tubs/pools or any common water gathering for a minimum of 3 days If you are in close proximity to other persons, delay returning to work or school for at least 3 days Do not allow others to drink from your drink container or use your eating utensils without washing them first. If possible, use a separate toilet. Male patient should sit on the toilet. There is avoid splashing of urine onto the season bathroom floor. Wipe up any spill urine with a tissue in place it inside the toilet. If you use a urine collection device, take advised on its use from your doctor. Be aware of avoiding spills and accidental drips of urine onto floor, bed etc. Grams collection device if reusable twice, putting insulation carefully without splashing into the toilet. Wash your hands thoroughly after visiting the bathroom. Immediately wash any linen on clothes, which you suspect may have become soiled with your urine, feces or blood. These items should be segregated and wash separately from other items, wash twice and rinsed well. Standard automatic washer will do nicely for cleansing the soiled items You should not have any blood taken for lab work until 3 days have passed from today. If you should cut yourself, wash away any spilled blood with tissue. Apply a dressing. Place tissue and toilet and flush twice. Wash hands thoroughly with warm water and mild soap. Significant potentially contaminated trash, placed in separate bag and dispose and regular trash container. Safety for the general public and household members ? Treated patients should be given patient-specific advice on the necessary precautions to reduce radiation exposure . The treated patient should remain >=.8 m (6 feet) away from family members, caregivers, and the general public as much as possible for approximately 24 hours after treatment. Adult caregivers may be closer than 1 m (3 feet) for brief intervals. In general, the treated patient should be instructed to avoid public transportation and extended time in public places and should not stay overnight in a hotel or motel within 24 hours of 131-I treatment. To protect household members from radiation exposure, the treated patient should avoid the following during the restricted period: ?Sleeping in the same bed with another adult, woman, infant, or child ?Sexual contact ?Kissing ?Sharing cups, utensils, towels, razors, toothbrushes The duration of the restricted period depends upon the dose received, amount of thyroid tissue, and rate of clearance. The restricted period is calculated individually for each treated patient Personal hygiene ? 131-I is renally excreted, and excretion is maximal during the first 48 hours after treatment. Patients should stay well hydrated (3 to 4 L of fluid daily) and void frequently. To avoid personal or caregiver contamination, patients should be meticulous in their personal hygiene, wiping any surfaces that may become contaminated with urine, stool, vomitus, blood, or perspiration for 48 hours after treatment . For 48 hours after therapy, men should sit when urinating. Exercise equipment should be wiped with flushable or disposable wipes. Exercise and bed clothes can be laundered in a washing machine. Dishes and utensils can be washed by hand or in a instrument lens generator. Flushable waste can be flushed down the toilet. Non-flushable waste (ie, incontinence pads) should be disposed of in a plastic trash bag devoted to radiation waste. Caregivers should wear disposable plastic gloves during clean-up. Radiation waste bags can be returned to the nuclear medicine facility one to two weeks after treatment or stored in the household (6 feet away from people or animals) for 80 days. After 80 days, radiation-related trash can be disposed of with regular household trash. International travel ? Low levels of 131-I activity )can be picked up by radiation detection systems at airports or international borders. Treated patients may trigger alarms for as long as 95 days posttherapy Future ? , should generally be delayed for at least six months after radioiodine therapy Low iodine diet to start 14 days before treatment upto 2 days after scan Coding Level of Care Code Est Pt Level 5 (50321) Complex EM visit Add On G2211 Diagnoses Thyroid cancer C73 Postoperative hypothyroidism E89.0 Hypothyroidism type: postoperative Time Spent (min) 45
--- OUTSIDE RECORDS SUMMARY | 2025-07-28 13:27 | XMS_ITS | Clinical Summary ---
Author Organization [employer] [facility] ity Address [address] [place] [address] Care Team Providers Care Cloth Wire Weaver Name Role Phone Unavailable Primary Care Provider [...]
--- OUTSIDE RECORDS SUMMARY | 2025-07-28 13:27 | XMS_ITS | Continuity of Care Document ---
Author Organization [facility] [address] [place] [address] Phone [phone] Care Team Providers Care Medical Advisor Name Role Phone Avel Eisenberg MD Care Team Information R eiver [phone] Problems Active Problems Provider Date Polycystic ovary [...] Medications SIG Qnty Indications Ordering Provider Date Nxgfjeiewoyhd9sc Tablets 1 tablet by mouth at 11 [...] ct) 8.1 pg/mL High 0.0-4.2 1 Test(s) 419195-23-MC Progesterone LCMS was developed and its performance characteristics determined by [facility]. It has not been cleared or approved [...]
== END 2025-07-28 13:46 | disposition home or self-care (01) ==
LOC: HO.ENCR 13:01
PROVIDERS: PCP Internal Medicine; Visit Provider Student in an Organized Health Care Education/Training Program
DX: C73 Malignant neoplasm of thyroid gland (principal); E89.0 Postprocedural hypothyroidism
CPT/HCPCS: 99215

== ENCOUNTER 2025-09-03 12:15 | Outpatient (REF) | payer OTHER, SELFPAY ==
--- OUTSIDE RECORDS SUMMARY | 2025-09-03 13:05 | XMS_ITS | Continuity of Care Document ---
Author Organization [facility] [address] [place] [address] Phone [phone] Care Team Providers Care Siderographist Name Role Phone Avel Eisenberg MD Care Team Information R eiver [phone] Problems Active Problems Provider Date Polycystic ovary [...] Medications SIG Qnty Indications Ordering Provider Date Kanzluhbutsnb0sx Tablets 1 tablet by mouth at 11 [...] ct) 8.1 pg/mL High 0.0-4.2 1 Test(s) 867980-53-LR Progesterone LCMS was developed and its performance characteristics determined by [facility]. It has not been cleared or approved [...] 9.9, adult RUSS Novak Plan of Treatment No Information Available Functional Status Description No Information Available Mental Status Description No Information Available Referrals Description No Information Available
--- OUTSIDE RECORDS SUMMARY | 2025-09-03 13:05 | XMS_ITS | Clinical Summary ---
Author Organization [facility] [employer] [facility] ity Address [address] [place] [address] Care Team Providers Care Reading Professor Name Role Phone Unavailable Primary Care Provider [...] Cervical Cancer Screening: P ap Smear 2015 HPV Vaccines (1 - 3-dose SCD M series) 2021 Depression Screening 12/02/2024 COVID-19 Vaccine ( - 2023-2 5 season) 2025 Influenza Vaccine (#1) 2025 RSV Immunization Adult Patie nts (1 - 1-dose 75+ series) 2069 HIB Vaccines Aged Out No longer eligi [...]
[2025-09-03 14:34] LABS: Free T4 (Free Thyroxine) 1.33 ng/dL (0.71-1.85); Thyroid Stimulating Hormone 0.48 uIU/mL (0.32-4.0)
[2025-09-06 23:04] LABS: Thyroglobulin 0.4 ng/mL; Thyroglobulin Antibodies <1 IU/mL (< or = 1)
== END 2025-09-03 12:16 | disposition home or self-care (01) ==
LOC: HO.10HDL 12:15
PROVIDERS: Visit Provider Student in an Organized Health Care Education/Training Program
DX: E89.0 Postprocedural hypothyroidism (principal); C73 Malignant neoplasm of thyroid gland
CPT/HCPCS: 36415; 84432; 84439; 84443; 86800

== ENCOUNTER 2025-09-22 09:45 | Outpatient (REF) | payer OTHER, SELFPAY ==
--- OUTSIDE RECORDS SUMMARY | 2025-09-22 11:29 | XMS_ITS | Clinical Summary ---
Author Organization [facility] ity Address [address] [place] [address] Care Team Providers Care Rn Provider Relations Name Role Phone Unavailable Primary Care Provider [...]
--- OUTSIDE RECORDS SUMMARY | 2025-09-22 11:29 | XMS_ITS | Continuity of Care Document ---
Author Organization [facility] [address] [place] [address] Phone [phone] Care Team Providers Care Heel Stainer Name Role Phone Avel Eisenberg MD Care Team Information R eiver [phone] Problems Active Problems Provider Date Polycystic ovary [...] Medications SIG Qnty Indications Ordering Provider Date Zulqwnoltzokm4ac Tablets 1 tablet by mouth at 11 [...] ct) 8.1 pg/mL High 0.0-4.2 1 Test(s) 299372-67-DA Progesterone LCMS was developed and its performance characteristics determined by [facility]. It has not been cleared or approved [...]
[2025-09-22 12:21] LABS: Free T4 (Free Thyroxine) < 0.42 ng/dL (0.71-1.85); Sodium 137 mmol/L (135-145); Thyroid Stimulating Hormone 9.14 uIU/mL (0.32-4.0)
== END 2025-09-22 09:46 | disposition home or self-care (01) ==
LOC: HO.10HDL 09:45
PROVIDERS: Visit Provider Student in an Organized Health Care Education/Training Program
DX: C73 Malignant neoplasm of thyroid gland (principal); E89.0 Postprocedural hypothyroidism
CPT/HCPCS: 36415; 84295; 84439; 84443

== ENCOUNTER 2025-09-27 08:45 | Outpatient (REF) | payer OTHER, SELFPAY ==
--- OUTSIDE RECORDS SUMMARY | 2025-09-27 09:18 | XMS_ITS | Clinical Summary ---
Author Organization [facility] [employer] [facility] ity Address [address] [place] [address] Care Team Providers Care Forklift Picker Name Role Phone Unavailable Primary Care Provider [...]
--- OUTSIDE RECORDS SUMMARY | 2025-09-27 09:18 | XMS_ITS | Continuity of Care Document ---
Author Organization [facility] [address] [place] [address] Phone [phone] Care Team Providers Care Ui Software Developer Name Role Phone Avel Eisenberg MD Care Team Information R eiver [phone] Problems Active Problems Provider Date Polycystic ovary [...] Medications SIG Qnty Indications Ordering Provider Date Xvkkecisdbtqt8az Tablets 1 tablet by mouth at 11 [...] ct) 8.1 pg/mL High 0.0-4.2 1 Test(s) 348399-55-AW Progesterone LCMS was developed and its performance characteristics determined by [facility]. It has not been cleared or approved [...]
[2025-09-27 11:01] LABS: Sodium 137 mmol/L (135-145)
[2025-09-27 11:17] LABS: Free T4 (Free Thyroxine) < 0.42 ng/dL (0.71-1.85)
== END 2025-09-27 08:46 | disposition home or self-care (01) ==
LOC: HO.10HDL 08:45
PROVIDERS: Visit Provider Student in an Organized Health Care Education/Training Program
DX: C73 Malignant neoplasm of thyroid gland (principal); E89.0 Postprocedural hypothyroidism
CPT/HCPCS: 36415; 84295; 84439; 84443

== ENCOUNTER 2025-09-29 08:17 | Outpatient (REF) | payer OTHER, SELFPAY ==
[2025-09-29 11:40] LABS: UPreg QC Valid YES
[2025-09-29 12:17] LABS: Sodium 139 mmol/L (135-145)
[2025-09-29 12:31] LABS: Free T4 (Free Thyroxine) < 0.42 ng/dL (0.71-1.85)
[2025-09-30 18:24] LABS: Thyroglobulin 0.4 ng/mL; Thyroglobulin Antibodies <1 IU/mL (< or = 1)
== END 2025-09-29 08:18 | disposition home or self-care (01) ==
LOC: HO.10HDL 08:17
PROVIDERS: Visit Provider Student in an Organized Health Care Education/Training Program
DX: C73 Malignant neoplasm of thyroid gland (principal); E89.0 Postprocedural hypothyroidism
CPT/HCPCS: 36415; 81025; 84295; 84432; 84439; 84443; 86800

== ENCOUNTER 2025-09-30 15:40 | Outpatient (REF) | payer OTHER, SELFPAY ==
--- OUTSIDE RECORDS SUMMARY | 2025-09-30 18:05 | XMS_ITS | Clinical Summary ---
Author Organization [facility] [employer] [facility] ity Address [address] [place] [address] Care Team Providers Care Rn Patient Care Name Role Phone Unavailable Primary Care Provider [...]
--- OUTSIDE RECORDS SUMMARY | 2025-09-30 18:05 | XMS_ITS | Continuity of Care Document ---
Author Organization [facility] [address] [facility] [place] [address] Phone [phone] Care Team Providers Care Senior Nurse Manager Name Role Phone Avel Eisenberg MD Care Team Information R eiver [phone] Problems Active Problems Provider Date Polycystic ovary [...] Medications SIG Qnty Indications Ordering Provider Date Sfrpbkmlznfie1oe Tablets 1 tablet by mouth at 11 [...] ct) 8.1 pg/mL High 0.0-4.2 1 Test(s) 069798-95-[id number] Progesterone LCMS was developed and its performance characteristics determined by [facility]. It has not been cleared or approved [...] 9.9, adult RUSS Novak Plan of Treatment 02/23/2025 - RUSS Novak* E28.2 Polycystic ovarian syndrome * R53.83 Other fatigue * E66.01 Morbid (severe) obesity due to excess calories * G47.30 Sleep apnea, unspecified * Z68.44 Body mass index [BMI] 60.0-69.9, adult * Functional Status Description No Information Available Mental Status Description No Information Available Referrals Description No Information Available
[2025-09-30 18:08] LABS: Sodium 138 mmol/L (135-145)
[2025-09-30 18:26] LABS: Free T4 (Free Thyroxine) < 0.42 ng/dL (0.71-1.85)
== END 2025-09-30 15:41 | disposition home or self-care (01) ==
LOC: HO.LAB 15:40
PROVIDERS: PCP Internal Medicine; Visit Provider Student in an Organized Health Care Education/Training Program
DX: Z32.00 Encounter for pregnancy test, result unknown (principal); E89.0 Postprocedural hypothyroidism; C73 Malignant neoplasm of thyroid gland; E28.2 Polycystic ovarian syndrome
CPT/HCPCS: 36415; 84295; 84439; 84443; 84702

== ENCOUNTER 2025-10-01 08:52 | Outpatient (REF) | payer OTHER, SELFPAY ==
[2025-10-04 18:04] LABS: Thyroglobulin 0.4 ng/mL; Thyroglobulin Antibodies <1 IU/mL (< or = 1)
== END 2025-10-01 08:53 | disposition home or self-care (01) ==
LOC: HO.LAB 08:52
PROVIDERS: PCP Internal Medicine; Visit Provider Student in an Organized Health Care Education/Training Program
DX: C73 Malignant neoplasm of thyroid gland (principal)
CPT/HCPCS: 36415; 84432; 84443; 86800